=== PATIENT | male | born 1940 | race African-American/Black ===

== ENCOUNTER 2017-01-19 20:25 | Inpatient (IN) | payer OTHER ==
--- NOTE | ~2017-01-19 | PUL ---
[address] [address] NAME: LEIDY NASH : 42 STATUS : ADM IN PAT#: [id number] AGE: 76 ADM/REG DATE : 01/19/17 MR#: [id number] REPORT SERV DATE: 01/25/17 DICTATED BY: VALERIANO VIRK DATE: 01/25/17 REPORT STATUS : Draft TRANSCRIBED BY: MODL DATE: 01/25/17 PULMONARY FUNCTION TEST PROCEDURE: Spirometry. Spirogram ratio 0.7. FEV1 of 1.11 L or 39% and FVC 1.6 L or 42%. IMPRESSION: Borderline large airways obstruction. Possible lung restriction. Get total lung volumes if clinically warranted. CEP/MODL Valeriano Virk DO / [id number] CC: MD REYNA Dunlap AMANDA M
--- NOTE | ~2017-01-19 | TEE ---
Transesophageal Echocardiogram [id number] [place]. [address] NAME: LEIDY NASH : 42 STATUS : ADM IN [facility]#: [id number] AGE: 76 ADM/REG DATE : 01/19/17 MR#: [id number] REPORT SERV DATE: 01/26/17 DICTATED BY: VIC KO DATE: 01/25/17 REPORT STATUS : Draft TRANSCRIBED BY: CHRISTIANO DATE: 01/25/17 TRANSESOPHAGEAL ECHOCARDIOGRAM: REASON FOR ADMISSION: Possible endocarditis. DATE: 01/25/2017 at 3 p.m. LOCATION: Short-stay unit. ANESTHESIA: Provided by anesthesiology associates. Consent from patient. COMPLICATIONS: None. PROFILE GRINDER TECHNICIAN: Amari. SENIOR PROCUREMENT SPECIALIST: Bronwyn. BRIEF HISTORY: A 76-year-old gentleman with multiple comorbidities includes had high fever, staph bacteremia followed by Dr. Nichole. He is hemodynamically stable, has sinus tachycardia. Hemoglobin was 8.3. Liver function tests mildly elevated. He otherwise appears comfortable. His dentition is fairly poor. He was placed on telemetry and had continuous monitoring as well as assessment of blood pressure, heart rate and O2 saturation. A padded bite block was used before the time-out was called and a face-mask was used by [facility]. The patient tolerated the procedure well. The esophagus was easily intubated with the omniplane YEN probe. Very good images were obtained and the patient was given the results and recommendations and I called Dr. Nichole with the result as well. FINDINGS: 1. Valve: The mitral valve is relatively thin and the leaflets coapt well; however, there are visible mobile echodensity located primarily toward the tips of each valve on the ventricular surface which appears suspicious for possible endocarditis lesions. The largest is 0.8/0.3 cm on the anterior mitral leaflet. The valve does exhibit some regurgitation perhaps of mild degree and it appears fairly central. 2. The aortic valve is trileaflet that coapt well. No insufficiency. 3. The tricuspid valve is fairly well seen and is otherwise unremarkable. 4. The pulmonary valve not well seen at all. a. Atria: Appeared grossly normal in size. Left atrial appendage is upper limit of normal. No spontaneous echo-contrast, thrombi, mass, or vegetation seen in either atria. The anterior atrial septum was intact. No septal defect. Color Doppler fails to demonstrate any intraatrial communication. The agitated saline "bubble contrast" opacifies the right atrium, fails to demonstrate any right to left flow. b. Ventricles: The left ventricle demonstrates concentric hypertrophy, normal systolic function, no segmental wall motion abnormalities, and the right ventricle is Transesophageal Echocardiogram [address] [address] NAME: LEIDY NASH : 42 STATUS : ADM IN PAT#: [id number] AGE: 76 ADM/REG DATE : 01/19/17 MR#: [id number] REPORT SERV DATE: 01/26/17 DICTATED BY: VIC KO. DATE: 01/25/17 REPORT STATUS : Draft TRANSCRIBED BY: MODShabbir DATE: 01/25/17 in the upper normal range, otherwise contracts fairly well. c. Pericardial space is normal. d. Visualized segments of the aorta demonstrates mild diffuse plaque only. No spontaneous echocontrast. IMPRESSON: Possible mitral valve endocarditis involving both leaflets as noted above. PLAN: Discussed with Dr. Nichole, antibiotics at his discretion. Note that the patient's transthoracic echo performed yesterday was interpreted by Dr. Hale and was otherwise fairly unremarkable without significant "valvular dysfunction." The left atria appeared mildly dilated, right ventricular systolic function appeared at the lower limits of normal, left ventricular ejection fraction was borderline at 50%, and the patient was tachycardic throughout the study. SAT/LIORL Vic Ko D.O. / [id number] CC: MD REYNA Dunlap AMANDA M Theodore Richards, M.D. Hal Hill, M.D.
--- NOTE | ~2017-01-19 | HP ---
History And Physical [facility] [address] [place]. [address] NAME: LEIDY MARTINEZ : 42 STATUS : ADM Moises PAT#: [id number] AGE: 76 ADM/REG DATE : 01/19/17 MR#: [id number] REPORT SERV DATE: 01/20/17 DICTATED BY: ALEXANDER FOOTE DATE: 01/20/17 REPORT STATUS : Draft TRANSCRIBED BY: MODL DATE: 01/20/17 DATE OF ADMISSION: 01/19/2017 CHIEF COMPLAINT: Right-sided chest pain. HISTORY OF PRESENT ILLNESS: This is a 76-year-old male, who presents to the emergency room at [facility] in [place] with the above-mentioned complaint. History is obtained from the patient and reviewing data available on the [employer]. Data from [facility] was also reviewed. According to Mr. Martinez who had recent GI bleed on the 12/29/2016 or 12/30/2016, he was in his usual state of health after his discharge when he started having this pain described above. Pain is essentially in the right lower chest or upper abdomen. He states he feels like there is a knot there and pain comes and goes, and when it is at that high it is about 8 or 9/10. It is associated with some sweating without any nausea or vomiting. He has had no other problems other than that. Today, it was unbearable and he decided to come to the emergency room to be evaluated. In the emergency room, he had a V/Q scan, which showed low probability for pulmonary embolism. He had leukocytosis and an elevated troponin of 3.60. He also had acute kidney injury and anemia with a hemoglobin of 8.9 and hematocrit of 27.8. Hospitalist Service has asked to admit him for further evaluation and treatment. At the time of my evaluation, he denied any chest pain or palpitations. He had no orthopnea. He had no cough, hemoptysis, night sweats, or weight loss. He has not had any recent falls or loss of consciousness. He has not had any fevers or chills recently. No history of nausea or vomiting. No diarrhea, no dysuria. No history of hematemesis, hematochezia, or hematuria. No other history of recent travel or exposures other than those mentioned above. PAST MEDICAL HISTORY: Significant for history of diabetes mellitus, hypertension, atrial fibrillation for which he was on Eliquis until his GI bleed and it was discontinued. He has coronary artery disease with stent placement and hyperlipidemia as well. SOCIAL HISTORY: He does not smoke, drink, or use recreational drugs. FAMILY HISTORY: Noncontributory. MEDICATIONS: At home were reviewed by me in the chart today and reordered by me. REVIEW OF SYSTEMS: As in history of present illness. All other systems were reviewed in detail and are quite unremarkable. PHYSICAL EXAMINATION: GENERAL: This is a pleasant 76-year-old, not in any acute distress. History And Physical [address] [address] NAME: LEIDY MARTINEZ : 42 STATUS : ADM Moises PAT#: [id number] AGE: 76 ADM/REG DATE : 01/19/17 MR#: [id number] REPORT SERV DATE: 01/20/17 DICTATED BY: ALEXANDER FOOTE DATE: 01/20/17 REPORT STATUS : Draft TRANSCRIBED BY: CHRISTIANO DATE: 01/20/17 HEENT: His head is atraumatic and normocephalic. He is alert, awake, and oriented to time, place, and person. Pupils are equal, reacting to light and accommodating. External ocular muscles are intact. Membranes are moist and pink. Sclerae are nonicteric. NECK: Supple with no jugular venous distention, lymphadenopathy, or thyromegaly. LUNGS: Clear to auscultation with no wheezes, rubs, or crackles. HEART: Heart sounds were regular with no murmurs, rubs, or gallops. ABDOMEN: There is tenderness to palpation in the abdomen primarily in the epigastric and right upper quadrant areas. There is no rebound or guarding. Bowel sounds are present. EXTREMITIES: Showed no cyanosis, clubbing, or edema. NEUROLOGIC: Grossly intact. No focal sensory or motor deficits. Higher functions appeared intact. VITAL SIGNS: His vital signs today showed a temperature of 97.3, pulse 106, respirations 20 a minute, blood pressure was 126/78, oxygen saturations were 93% breathing 2 L of oxygen via nasal cannula. LABORATORY DATA/IMAGING: Reviewed on the [employer] showed a sodium of 138, potassium 4.0, chloride 102, and CO2 of 22. BUN was 31 with a creatinine of 2.39. Blood glucose was 196. His troponin was 3.60 today. CBC showed a white blood cell count of 18,700, hemoglobin was 8.9, hematocrit 27.8, and platelet count was 695,000. His D-dimer was 2.44 today. Urinalysis was not done today. Again, V/Q scan results were reviewed by me and there is low probability for pulmonary embolism. A 12-lead EKG done in the emergency room was reviewed and interpreted by me. There is sinus tachycardia with a rate of 101. IMPRESSION: 1. Right-sided pleuritic chest pain versus right upper quadrant pain. 2. Leukocytosis. 3. Elevated troponin. 4. Acute kidney injury. 5. Anemia. 6. Gastroesophageal reflux disease. 7. Diabetes mellitus type 2 with hyperglycemia. 8. Hypomagnesemia. 9. Hypertension. 10.History of atrial fibrillation. 11.Coronary artery disease with stent. 12.Hyperlipidemia. PLAN: We will admit Mr. Martinez to the Hospitalist Service with Telemetry for a 24-hour observation. We will follow serial troponin measurements to rule out acute coronary syndrome. Heparin is contraindicated due to his recent GI bleed. We will offer intravenous Dilaudid or morphine on an as needed basis to control pain. His V/Q scan was low probability for PE. We will go ahead and order a CT scan of his abdomen and pelvis History And Physical [address] [address] NAME: LEIDY MARTINEZ : 42 STATUS : ADM Moises PAT#: [id number] AGE: 76 ADM/REG DATE : 01/19/17 MR#: [id number] REPORT SERV DATE: 01/20/17 DICTATED BY: ALEXANDER FOOTE DATE: 01/20/17 REPORT STATUS : Draft TRANSCRIBED BY: MODL DATE: 01/20/17 noncontrast to evaluate this pain further. We will replace magnesium at this time, follow chemistry, and redo his electrolytes in the morning and replace as needed. We will start him on IV fluids cautiously for volume replacement. We will follow serial hemoglobin and hematocrit levels, and type cross and transfuse if needed. We will also place him on NovoLog insulin per sliding scale for blood sugar control and go ahead and check his A1c. We will place him on low-dose heparin subcutaneously for DVT prophylaxis while here. I have discussed the above plan with the patient, and his questions were answered and he is agreeable to the above recommendations. Hospitalist Service has asked to admit him for further evaluation and treatment. /CHRISTIANO Alexander Foote M.D. / [id number] CC: Josh Bonilla M.D.
--- NOTE | ~2017-01-19 | PRECARD ---
H&P [facility] [address] [facility] [place]. [address] NAME: MAMADOU MARTINEZ : 42 STATUS : ADM Moises PAT#: [id number] AGE: 76 ADM/REG DATE : 01/19/17 MR#: [id number] REPORT SERV DATE: 01/20/17 DICTATED BY: DULCE PEÑA DATE: 01/20/17 REPORT STATUS : Draft TRANSCRIBED BY: CHRISTIANO DATE: 01/20/17 DATE OF ADMISSION: 01/19/2017 HISTORY: Mr. Mamadou Martinez is a 76-year-old gentleman admitted with a [id number] day history of right flank discomfort. Mr. Martinez has no known cardiovascular disease. He lives alone. He describes history of alcohol abuse, quit in the , he also quit smoking about 1989. He describes dyspnea on exertion when walking on level ground for three to four months. No orthopnea or PND. No palpitations. For the last 3 days, he has had discomfort in his right flank. He describes discomfort in the right side in the axillary line in the lower rib area, upper abdomen. This discomfort is exacerbated by rotating his trunk back and forth. He has no tenderness in that area. He absolutely denied any falls, any trauma to that area. These symptoms have been persistent. He came to the emergency room because of this discomfort in his right side. It is not in the chest, it is in the liver area again from the mid axillary line. Again, it is not tender and he has had no trauma. Upon further questioning, he does admit to dyspnea on exertion now for several months. He has history of alcohol use and tobacco use, though he quit drinking about 1979 and smoking in the . He has no definite family history of premature coronary disease. He came to the emergency room, V/Q scan was low probability for pulmonary embolism. His laboratories included a white count 18,700 and a troponin of 3.6. Laboratories indicated creatinine of 1.1 at [facility] on 12/30/2016. PAST MEDICAL HISTORY: History of alcohol abuse, history of tobacco use. MEDICATIONS: Albuterol, aspirin, hydrochlorothiazide, isosorbide, losartan, Mevacor, Glucophage, metoprolol, Prilosec, potassium, Mysoline, Rythmol, Ultram. REVIEW OF SYSTEMS: Complete review of systems was obtained, pertinent negative and unremarkable except as noted above and below. All systems addressed. PHYSICAL EXAMINATION: VITAL SIGNS: Blood pressure about 135/80, heart rate 80. GENERAL: The patient appears chronically ill, has some mild conversational dyspnea, with tremor in both arms and halting speech. HEENT: No xanthelasma; lips without cyanosis LUNGS: Clear to auscultation, no wheezes, rales or rhonchi; good breath sounds. COR: No JVD or hepatojugular reflux, no rubs or gallops, impulse mid clavicular line without carotid or abdominal bruits; normal S1 and S2. 2/6 murmur at the right upper sternal border. . H&P [address] [address] NAME: MAMADOU MARTINEZ : 42 STATUS : ADM Moises PAT#: [id number] AGE: 76 ADM/REG DATE : 01/19/17 MR#: [id number] REPORT SERV DATE: 01/20/17 DICTATED BY: DULCE PEÑA DATE: 01/20/17 REPORT STATUS : Draft TRANSCRIBED BY: CHRISTIANO DATE: 01/20/17 ABDOMEN: Bowel sounds positive, normal activity, without tenderness, masses or hepatosplenomegaly. EXTREMITIES: No edema, cyanosis. SKIN: Normal turgor. MS: Normal muscle strength, without kyphosis/scoliosis. NEURO/PSYCH: Alert and oriented times 4, no apparent anxiety or depression. LABORATORIES: BUN 31, creatinine 2.39, troponin 3.6, glucose 195. White count 18.7, hematocrit of 27.8, platelet count 2695. V/Q showed no pulmonary embolism. EKG, sinus tachycardia at 101 with PACs without ischemia. ASSESSMENT: Mr. Martinez is a 76-year-old gentleman who describes dyspnea on exertion for several months and right flank discomfort. He has no tenderness. No trauma. His creatinine apparently was normal early this month at [place] and now is 2.39. He is on Rythmol, he is in sinus rhythm. I will stop the Rythmol given the possibility of coronary artery disease. He also has diabetes by records, though he denies having diabetes. I presume he was in atrial fibrillation at [facility] and that is why the propafenone was started. I do not have those records. Regardless I will stop propafenone given disease and the risk of proarrhythmia. PLAN: 1. Obtain records from [facility], indications propafenone, presumably atrial fibrillation; also need to investigate the possibility of coronary artery disease. 2. Consider cardiac catheterization with possible angioplasty depending upon his renal function. Given his complete absence of chest discomfort or significant arrhythmia, I think it is safest to delay catheterization if at all. LIBIA/CHRISTIANO Dulce Peña M.D. / [id number] CC: Josh Bonilla M.D.
--- NOTE | ~2017-01-19 | CN ---
Consultation Report [facility] [address] [facility] [place]. [address] NAME: LEIDY MARTINEZ : 44 STATUS : ADM Moises PAT#: [id number] AGE: 76 ADM/REG DATE : 01/19/17 MR#: [id number] REPORT SERV DATE: 01/20/17 DICTATED BY: NAMAN ALVA DATE: 01/20/17 REPORT STATUS : Draft TRANSCRIBED BY: MODL DATE: 01/20/17 NEPHROLOGY CONSULT DATE OF CONSULTATION: HISTORY OF PRESENT ILLNESS: Mr. Martinez is a patient of Dr. Lincoln, follows in our office for chronic kidney disease, admitted at baseline creatinine 1.2 in the July last year, recently at [facility] for lower GI bleed and no significant findings identified at that point, but was taken off his Eliquis. He presents here with chest pain yesterday, found to have elevated troponin, which has peaked at 14.2. Dr. Elmo Swann, who follows him at [facility] had to come to the heart catheterization this afternoon for acute TX. Besides his recent GI bleed, his past medical history is significant for 40 years of diabetes, 40 years of hypertension, history of atrial fib, ablated in the past and placed on Eliquis, which was stopped because of his GI bleed. He has known coronary artery disease, stented by Dr. Swann in the past, hyperlipidemia, and lobectomy of his right lung, which was not for cancer, but because of some fluid accumulation, that is all I could get from him. SOCIAL HISTORY: No tobacco. No alcohol. No drugs. . Daughter cares for him, her name is Bonnie Martinez, cell phone #[phone]. I have talked to her about the situation, she was not aware he was in the hospital. FAMILY HISTORY: Noncontributory. ALLERGIES: HE IS ALLERGIC TO BENADRYL, IT CAUSES ITCHING. REVIEW OF SYSTEMS: Chest pain, right-sided on admission, it is resolved now. Positive troponins. Hemoglobin was low at 8.9, followed in my office by Dr. Lincoln, baseline creatinine 1.2. With fluids during his [facility] admission, creatinine came down to 1.1 on 12/30/2016. He is chilling in the room, but says he is cold. He has had no fever, chilling prior to hospitalization. No hemoptysis. No further GI bleeding and has been asymptomatic until the chest pain started. HOME MEDICATIONS: Listed as albuterol, aspirin, hydrochlorothiazide, isosorbide, losartan, lovastatin, metformin, metoprolol, omeprazole, potassium, primidone, Rythmol, and Ultram. PHYSICAL EXAMINATION: VITAL SIGNS: Blood pressure 140/77, heart rate 95, respirations 16, temp 97.4. GENERAL: Alert, cooperative, in no acute distress. LUNGS: Clear. CARDIOVASCULAR: Without murmur, gallops, or rubs. No jugular venous distention. ABDOMEN: Soft, benign. Bowel sounds are present. No peripheral edema. Good pulses. NEUROLOGICAL: Normal exam basically with patient oriented x3, cooperative, nonfocal neurological exam. Consultation Report [address] [place]. [address] NAME: LEIDY MARTINEZ : 42 STATUS : ADM Moises PAT#: [id number] AGE: 76 ADM/REG DATE : 01/19/17 MR#: [id number] REPORT SERV DATE: 01/20/17 DICTATED BY: NAMAN ALVA DATE: 01/20/17 REPORT STATUS : Draft TRANSCRIBED BY: MODShabbir DATE: 01/20/17 SKIN: No skin rash. LYMPH: No lymphadenopathy. LABORATORY DATA: Shows sodium 140, potassium 4.2, chloride 107, CO2 21 with a BUN of 36, creatinine 2.5, blood sugar 178. Troponin is 14.22, TSH 0.34. INR 1.5. EKG shows PACs, otherwise unremarkable except [place] [address], hemoglobin 8.6, hematocrit 27, platelet count 636,000. Chest x-ray is clear. ASSESSMENT: 1. Acute myocardial infarction, for cardiac cath three o'clock today by Dr. Tio Swann. 2. Acute kidney injury on chronic kidney disease stage III, baseline creatinine 1.2 in July last year, and again in 12/30/2016 this year at [facility] with fluids. Creatinine was down to 1.1. 3. See past medical history for diabetes, hypertension, and cardiac issues. PLAN: IV fluids. I have discussed with Dr. Kahn. He has given him some bicarb. We will attempt to avoid dialysis if at all possible. The patient is aware of need for dialysis, where his kidney function to be affected by the dye. Daughter also is aware of this and we will follow creatinine again this evening and tomorrow morning and decide then if dialysis is indicated. He is very familiar with dialysis due to the dialysis of his sister. MARY KATE/CHRISTIANO Naman Alva M.D. / [id number] CC: DO Sheila Orta M.D. Frank B. Calhoun, M.D.
--- NOTE | ~2017-01-19 | CN ---
Consultation Report [facility] [address] [place]. [address] NAME: LEIDY NASH : 42 STATUS : ADM IN [facility]#: [id number] AGE: 76 ADM/REG DATE : 01/19/17 MR#: [id number] REPORT SERV DATE: 01/21/17 DICTATED BY: CATHERINE NICHOLE DATE: 01/21/17 REPORT STATUS : Draft TRANSCRIBED BY: MODL DATE: 01/21/17 INFECTIOUS DISEASE CONSULTATION DATE OF CONSULTATION: 01/21/2017 REASON FOR CONSULTATION: MRSA septicemia. HISTORY OF PRESENT ILLNESS: This is a 76-year-old man with past medical history notable for chronic kidney disease, hypertension, diabetes, hyperlipidemia, gastroesophageal reflux, and atrial fibrillation. He presented to the emergency department at [facility] on the evening of 01/19/2017 with the onset that day of pain. The patient tells me this pain was more in the right base of his neck and was associated with shortness of breath. The admission notes states that he said the pain was more in his right lower rib cage area and upper quadrant. He has a little bit vague about when all this began. Initial notes suggested it just developed over the previous day or two, but then, he tells me that his problems started some days before. Actually, he says that he just felt rather poorly after beginning about three days after his discharge from [facility] on 01/04/2017. He had been admitted there from 12/28/2016 through 01/04/2017 for evidence of GI bleed, for which he underwent EGD, colonoscopy, and a capsule endoscopy without a source of bleeding found, although he did have some superficial ulcerations in the proximal duodenum. The patient states about three days after discharge, he started just feeling poorly in general and may be he was having some subjective fevers, although again he is rather vague about it at all. No severe shaking chills, and a couple of days before coming to the ER, he started getting this pain, which was quite severe. On initial evaluation, he had a white blood cell count of 18,700 and a troponin of 3.6 and creatinine 2.39. Blood cultures were obtained, and he was started on empiric antibiotics with vancomycin and Levaquin. He had a low probability V/Q scan and then underwent a CT scan of the abdomen and pelvis and chest without IV contrast. These studies are reviewed and revealed a rounded incompletely circumscribed nodular infiltrate of the right lower lobe measuring 2 x 1.8 cm of indeterminate etiology, possible round pneumonia versus neoplastic lesion. The patient also has moderately severe centrilobular emphysema. The abdomen and pelvis otherwise just showed several hyperdense cystic structures in the right kidney, some of which were felt to possibly be hemorrhagic but further investigation was felt to be warranted at some point. There is marked enlargement of the prostate. Both sets of admission blood cultures have returned positive for MRSA. The patient underwent cardiac cath as his troponin peaked at 14.20 and this demonstrated normal coronary artery arteries with a widely patent stent except for some mild distal small vessel disease in the right coronary artery. The patient has been afebrile. His white blood cell count has improved down to 14.3 today and his pain has resolved. He does state that he has episodic cough, which is not very productive, and he denies any hemoptysis. In reviewing the [facility] discharge summary from his admission earlier this month, I do not see any indication of any infectious complications there and his white blood cell count was normal, and he denies any problems with IV sites. He denies any skin or soft tissue infection such as boils or abscesses. Consultation Report [address] [place]. [address] NAME: LEIDY NASH : 44 STATUS : ADM IN [facility]#: [id number] AGE: 76 ADM/REG DATE : 01/19/17 MR#: [id number] REPORT SERV DATE: 01/21/17 DICTATED BY: CATHERINE NICHOLE DATE: 01/21/17 REPORT STATUS : Draft TRANSCRIBED BY: CHRISTIANO DATE: 01/21/17 PAST MEDICAL HISTORY: Other than the above is unremarkable. ALLERGIES: HE IS INTOLERANT OF BENADRYL. PRESENT MEDICATIONS: In addition to vancomycin include Levaquin, Isordil, Mevacor, Toprol, Protonix, primidone, and Spiriva. SOCIAL HISTORY: The patient has a past history of tobacco use but quit in the , also quit drinking at that time. He lives alone. FAMILY HISTORY: Unremarkable. REVIEW OF SYSTEMS: No nausea, vomiting, diarrhea, genitourinary symptoms, back pain, or headache. PHYSICAL EXAMINATION: VITAL SIGNS: The patient weighs 89 kg. He is afebrile. Blood pressure 110/68, pulse 88, it was as high as 112, respiratory rate 14, it was as high as 22. GENERAL: He is alert, in no acute distress. HEAD AND NECK: Conjunctivae show no petechiae. The oral cavity is clear. NECK: Supple. No adenopathy. LUNGS: He has inspiratory crackles, mild, in both bases, otherwise clear. CARDIAC: Regular rate and rhythm at present. Normal S1, S2 with a very soft 1/6 to 2/6 systolic ejection murmur at the aortic area. ABDOMEN: Soft, nontender. No masses. EXTREMITIES: No stigmata of endocarditis. Trace edema. Peripheral IV without phlebitis. LABORATORY STUDIES: White blood cell count as mentioned, hemoglobin 7.2, platelets 574. Creatinine is back down to about his baseline at 1.54 and albumin 1.9. Urinalysis on admission negative. Blood cultures as mentioned. IMAGING STUDIES: As noted above. IMPRESSION: Methicillin-resistant Staphylococcus aureus septicemia without a definite source in the patient who also presented with myocardial infarction and negative cardiac cath. Given this we must at least consider the possibility of endocarditis with coronary artery embolic event leading to myocardial infarction. The CT scan of the chest does show an abnormality, which could be a round pneumonia versus a mass of some sort. I do not think though this is all methicillin-resistant Staphylococcus aureus pneumonia. The skeletal structures including the spine on the CT scan of the chest, abdomen, and pelvis also showed no signs of infection. PLAN: 1. We will continue vancomycin and discontinue the Levaquin. 2. Repeat blood cultures in the morning. Consultation Report [address] [address] NAME: LEIDY NASH : 42 STATUS : ADM IN [facility]#: [id number] AGE: 76 ADM/REG DATE : 01/19/17 MR#: [id number] REPORT SERV DATE: 01/21/17 DICTATED BY: CATHERINE NICHOLE DATE: 01/21/17 REPORT STATUS : Draft TRANSCRIBED BY: CHRISTIANO DATE: 01/21/17 3. Echocardiogram, he may need a YEN. DOROTHY/CHRISTIANO Catherine Nichole M.D. / [id number] CC: DO REYNA Orta AMANDA M Theodore Richards, M.D.
--- NOTE | ~2017-01-19 | CN ---
Consultation Report [facility] [address] [place]. [address] NAME: LEIDY MARTINEZ : 44 STATUS : ADM IN PAT#: [id number] AGE: 76 ADM/REG DATE : 01/19/17 MR#: [id number] REPORT SERV DATE: 01/22/17 DICTATED BY: RADHA ARCHER DATE: 01/22/17 REPORT STATUS : Draft TRANSCRIBED BY: MODL DATE: 01/22/17 PULMONARY CONSULTATION DATE OF CONSULTATION: 01/22/2017 REASON FOR CONSULTATION: Abnormal CT scan of the chest. HISTORY OF PRESENT ILLNESS: Mr. Martinez is a 76-year-old black male, former smoker, with a history of previous right upper lobectomy who was admitted complaining of abdominal pain. As part of his workup, he had a CT scan of the abdomen and pelvis and lung cuts on his abdominal CT, and the subsequent CT scan of the chest revealed a possible lung mass, so Pulmonary was consulted for assistance. The patient denies pulmonary complaints now and prior to admission. He denies shortness of breath, cough, wheezing, sputum production, fever, chills, night sweats, or hemoptysis. He does have the abdominal pain as described. He states he sees an [place] phone specialist and has seen him "one time only, just now," but he is unsure why he is seeing that physician. He also states he has had a prior CT scan of the chest. He is unable to give the dates, but states he has had one recently. With regard to his previous right upper lobectomy, he states it was done years ago secondary to "fluid on the lung." He is unable to give further details. Here in the hospital, he was found to have MRSA septicemia and has been treated with vancomycin per Infectious Diseases. Additionally, he received Levaquin, but that medication has been discontinued. He has been on Spiriva here as an inpatient and it is documented as an outpatient medication, though he denies this. Currently, he feels his abdominal pain is better. He continues to deny pulmonary symptoms. PAST MEDICAL HISTORY: 1. The patient denies a past medical history of pulmonary diseases other than right upper lobectomy. He denies COPD. 2. Right upper lobectomy as noted above - reason unclear. 3. Former smoker. 4. Diabetes mellitus. 5. Hypertension. 6. Atrial fibrillation with a history of chronic anticoagulation. 7. Previous GI bleed. 8. Coronary artery disease with cardiac stent. 9. Hyperlipidemia. 10.Chronic kidney disease. 11.GERD. FAMILY HISTORY: He denies family history of pulmonary diseases. Consultation Report [facility] [id number] [place]. [address] NAME: LEIDY MARTINEZ : 44 STATUS : ADM IN PAT#: [id number] AGE: 76 ADM/REG DATE : 01/19/17 MR#: [id number] REPORT SERV DATE: 01/22/17 DICTATED BY: RADHA ARCHER DATE: 01/22/17 REPORT STATUS : Draft TRANSCRIBED BY: CHRISTIANO DATE: 01/22/17 SOCIAL HISTORY: Mr. Martinez smoked approximately one pack of cigarettes per day for more than 60 years and quit a year and half ago. He denies current ethanol intake, but states he has a long history of significant ethanol intake in the past. He denies past/present drug use or chewing tobacco. He denies occupational exposures, including asbestos. He is a and has three children. MEDICATIONS: Outpatient and inpatient medications were reviewed and are as documented in the record. The medical record indicates that the patient was on Spiriva 18 mcg once daily and rescue albuterol as an outpatient, though the patient denies this. He is on these medications here as an inpatient. ALLERGIES: DIPHENHYDRAMINE. REVIEW OF SYSTEMS: A 10-point system review was conducted and is remarkable for the symptoms as described in the history of present illness. He denies symptoms suggestive of obstructive sleep apnea. PHYSICAL EXAMINATION: VITAL SIGNS: Temperature 97.6 degrees, heart rate 100, blood pressure 100/61, respiratory rate 14, and oxygen saturation 97% on room air. GENERAL: A well-nourished, well-developed, black male. Alert, oriented, in no apparent distress. Sitting up in chair. HEENT: Normocephalic. Atraumatic. There is no scleral icterus, but the sclerae are muddy. The conjunctivae are clear. The oropharynx is clear. He has very poor dentition. NECK: Supple. No lymphadenopathy was noted. LUNGS: Good effort. There are diminished breath sounds throughout. The lungs are clear to auscultation bilaterally. HEART: Regular tachycardia. ABDOMEN: Soft. Nontender. There is minimal distention. The bowel sounds are normal in all four quadrants. BILATERAL EXTREMITIES: There is trace pretibial edema. There is no cyanosis or clubbing. NEUROLOGICAL: A very limited exam was conducted and was found to be nonfocal. SKIN: No rashes were noted. LABORATORY RESULTS: Labs were reviewed and are as documented in the record. Notable labs include a white blood cell count of 12.0. The procalcitonin is 1.00 down from 2.52. Two blood cultures done on 01/21/2017 are positive for MRSA. IMAGING: The V/Q scan done this admission was low probability for pulmonary embolism. The chest x-ray done this admission did not reveal any infiltrates, effusions, or nodules. The CT scan of the chest as well as the lung cuts of the abdominal CT revealed diffuse emphysema, minimal bronchiectasis, rare scattered ground-glass infiltrates, bibasilar Consultation Report [address] [address] NAME: LEIDY MARTINEZ : 44 STATUS : ADM IN [facility]#: [id number] AGE: 76 ADM/REG DATE : 01/19/17 MR#: [id number] REPORT SERV DATE: 01/22/17 DICTATED BY: RADHA ARCHER DATE: 01/22/17 REPORT STATUS : Draft TRANSCRIBED BY: CHRISTIANO DATE: 01/22/17 atelectasis, and a right lower lobe mass-like consolidation. ASSESSMENT AND PLAN: Mr. Martinez is a 76-year-old black male, former smoker, with an abnormal CT scan of the chest as described above. The right lower lobe abnormality is a mass versus possible pneumonia versus rounded atelectasis. He did have a procalcitonin that was elevated, but is coming down with antibiotic therapy as per Infectious Disease. He is asymptomatic from a pulmonary perspective as noted above. As noted, he does have a phone specialist at [place] and states he has previous CT scans of the chest including a recent scan. He also has a history of right upper lobectomy as described. The findings on CT may be related to his previous right upper lobectomy. There is also some question of COPD. RECOMMENDATIONS: 1. Continue antibiotics as per Infectious Disease. 2. Recheck procalcitonin. 3. Attempt to obtain any prior CT scans of the chest from [place]. 4. Continue bronchodilators. 5. Improve pulmonary toilet as the patient does have significant atelectasis. We will add EzPAP and incentive spirometry. 6. He will need at minimum a followup CT scan of the chest in three months, but this recommendation may change depending on his response to therapy and comparison to prior films if they are available. 7. With regard to possible COPD, I recommend continuing him on Spiriva and albuterol. A bedside spirogram has been ordered for him. Thank you very much for this consultation. Further recommendations to follow. PS/MODL Radha Archer M.D. / [id number] CC: DO REYNA Orta AMANDA M
--- NOTE | ~2017-01-19 | DS ---
Discharge Summary [facility] [address] [place]. [address] NAME: LEIDY NASH : 44 STATUS : DIS IN PAT#: [id number] AGE: 76 ADM/REG DATE : 01/19/17 MR#: [id number] REPORT SERV DATE: 02/09/17 DICTATED BY: TELLO SANABRIA DATE: 02/08/17 REPORT STATUS : Draft TRANSCRIBED BY: MODL DATE: 02/08/17 ADMISSION DATE: 01/19/2017 DISCHARGE DATE: 02/08/2017 CONSULTING PHYSICIANS: Dr. Ko for Cardiology, Dr. Virk for Pulmonary, Dr. Nichole for ID, Dr. Paul for Nephro. FINAL DIAGNOSES: 1. 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 2. Pericarditis. 3. Atrial fibrillation. 4. Recent fss-BB-llmlbny elevation myocardial infarction. 5. Hypertension. 6. Pulmonary edema. 7. Chronic kidney disease, 3-4. 8. Chronic obstructive pulmonary disease. 9. Diabetes. 10.Anemia of chronic disease. 11.Depression. 12.Severe malnutrition. HOSPITAL COURSE: Please refer to the H and P done by Dr. Mercedes on 01/20/2017, the interim discharge summary done by Dr. Narayan on 01/31/2017, the interim discharge summary done by Dr. Silva and Narcisa Ngo on 02/05/2017 and 02/06/2017. Since I took care of this patient, the patient has been approved to go to [facility] [place]; however, his heart rate was still elevated. We increased his metoprolol, observed him overnight and we see that it is now less than 100. The patient's blood pressure remained stable and the other subspecialties have recommended either palliative care or hospice. The patient has not decided on hospice yet. We got palliative care involved and they cleared the patient to go to [facility]. The patient will now be discharged with the above diagnosis. He will be on the following medications: Lipitor 40 mg at bedtime, Marinol 2.5 mg with breakfast and supper, subcutaneously insulin protocol level 2, melatonin 6 mg at bedtime, metoprolol 25 mg twice a day, Protonix 40 mg a day, Mysoline 200 mg at bedtime, sertraline 25 mg a day, Spiriva 18 mcg powder inhaled once a day, Demadex 20 mg a day, daptomycin 500 mg q.2 days until 03/03/2017, albuterol two puffs p.r.n. The patient will follow up with [facility] doctor, then follow up with his PCP after [facility] discharge. This has been explained to the patient. He agreed and understood the plan. YUDI/CHRISTIANO Tello Sanabria M.D. Discharge Summary [address] [address] NAME: LEIDY NASH : 42 STATUS : DIS IN PAT#: [id number] AGE: 76 ADM/REG DATE : 01/19/17 MR#: [id number] REPORT SERV DATE: 02/09/17 DICTATED BY: TELLO SANABRIA DATE: 02/08/17 REPORT STATUS : Draft TRANSCRIBED BY: CHRISTIANO DATE: 02/08/17 / [id number] CC: Tashi Martel AMANDA M
--- NOTE | ~2017-01-19 | IDS ---
Interim Discharge Summary [facility] [address] [place]. [address] NAME: LEIDY MARTINEZ : 44 STATUS : ADM IN [facility]#: [id number] AGE: 76 ADM/REG DATE : 01/19/17 MR#: [id number] REPORT SERV DATE: 01/31/17 DICTATED BY: SILVINA LAURA DATE: 01/30/17 REPORT STATUS : Draft TRANSCRIBED BY: MODL DATE: 01/30/17 ADMISSION DATE: 01/19/2017 DISCHARGE DATE: Mr. Martinez is a 76-year-old male with a history of diabetes type 2, hypertension, atrial fibrillation, on Eliquis, who presented to the hospital and was admitted to the Hospitalist Service with a complaint of chest pain. For further details, please refer to H and P dictated by Dr. Alexander Mercedes on 01/20/2017. HOSPITAL COURSE: I assumed care of the patient on 01/24/2017. At the time of my assumption of care, Nephrology was already consulted. Please refer to consultation note by Nephrology dictated on 01/20/2017. Infectious Disease was also consulted. Please refer to their consultation on 01/21/2017. Briefly, the patient was admitted under Hospitalist Service with a complaint of right-sided chest pain. At the time of presentation, his white count was severely elevated. Troponins were also elevated prompting a cardiology consult. Given his elevated white count, workup was performed which includes a blood cultures. Blood cultures came back positive for MRSA prompting a TTE and TTE came negative; however, Cardiology recommended YEN. YEN noted pauses of vegetations and the patient was started on vancomycin at the time of my assumption of care, the patient was already on vancomycin and since Infectious Diseases were following, the recommendations were for patient to be placed on a six-week course of IV antibiotics. The patient initially tolerated therapy with pharmacy monitoring trough level. Given that the patient required a six-week therapy of the IV antibiotics, case management was consulted for subacute rehab placement. Placement was found for the patient and the patient was supposed to be discharged today on 01/30/2017; however, over the weekend, starting about 01/27/2017, the patient's creatinine started trending up. Initially, thought was that his TEE was due to hypotension given that the patient had several episodes of hypotension during this admission; however, with the correction of his blood pressure, his creatinine continued to trend up. Given that the patient was on vancomycin and his trough level was greater than 20, most likely that the etiology of worsening kidney function is secondary to vancomycin. Given that plan is for the patient to be on medication for extended period of time and given that it appears that the patient's kidneys are worsening in the setting of vancomycin. The patient was not discharged, Nephrology was consulted to assist in management. PROBLEM LIST: 1. MRSA bacteremia. 2. Infective endocarditis. 3. TEE. 4. NSTEMI. 5. CKD stage III. 6. Constipation. 7. Hyperkalemia. DISPOSITION: The patient will likely be discharged to subacute rehab. Pending medical clearance. Interim Discharge Summary [address] [address] NAME: LEIDY MARTINEZ : 44 STATUS : ADM IN PAT#: [id number] AGE: 76 ADM/REG DATE : 01/19/17 MR#: [id number] REPORT SERV DATE: 01/31/17 DICTATED BY: SILVINA LAURA DATE: 01/30/17 REPORT STATUS : Draft TRANSCRIBED BY: CHRISTIANO DATE: 01/30/17 THELMA/CHRISTIANO Silvina Laura MD / [id number] CC: MD Sheila Dunlap
--- NOTE | ~2017-01-19 | IDS ---
Interim Discharge Summary [facility] [address] [place]. [address] NAME: LEIDY NASH : 44 STATUS : ADM IN [facility]#: [id number] AGE: 76 ADM/REG DATE : 01/19/17 MR#: [id number] REPORT SERV DATE: 02/06/17 DICTATED BY: DATE: REPORT STATUS : Draft TRANSCRIBED BY: MODL DATE: 02/06/17 ADMISSION DATE: 01/19/2017 DISCHARGE DATE: DIAGNOSES: Current interim discharge diagnoses list includes: 1. Methicillin-resistant Staphylococcus aureus endocarditis. 2. Pericarditis. 3. Pulmonary edema. 4. Hypertension. 5. Anemia. 6. Depression. 7. Cachexia. 8. Severe malnutrition. 9. Hypotension. 10.Decreased urinary output. 11.Status post okt-PT-qwujekv elevation myocardial infarction. 12.Generalized weakness. 13.Chronic kidney disease stage 3 to 4. 14.Tachycardia. 15.Chronic obstructive pulmonary disease. 16.History of recent gastrointestinal bleed. 17.Diabetes mellitus type 2. CONSULTING PHYSICIANS: Nephrology with Dr. Unger. Infectious Diseases with Dr. Nichole. Pulmonology with Dr. Vera. Cardiology with Dr. Ko. HISTORY OF PRESENT ILLNESS: This 76-year-old black male who presented to the ER of [facility] with right-sided chest pain. Please see initial H and P by Dr. Alexander Mercedes. The patient also has a history of recent GI bleed and was hospitalized at [place] for the first week of December. The patient was seen by Dr. Paul on 01/20/2017 in consultation due to acute kidney injury on chronic kidney disease stage III in the setting of acute myocardial infarction. The patient had a heart catheterization on 01/20/2017 and a YEN by Dr. Ko on 01/25/2017. Please see interim discharge summary by Dr. Torres Narayan from 01/24/2017 through 01/30/2017. I assume care on 02/01/2017. At that time, it had been discovered that the patient had MRSA bacteremia with positive blood cultures and Dr. Nichole had changed his IV vancomycin to daptomycin. The patient was having episodes of hyperkalemia for which he was receiving Kayexalate. His diabetes mellitus had stayed stable during his stay with only occasional use of sliding scale insulin. The patient has been unable to get specific treatment for his pericarditis with cultures seen due to his renal status and steroids due to his upper GI bleed status post stay at [place] from 12/28/2016 to 01/04/2017, status post EGD, colonoscopy, and capsule. The patient has been in acute-on- chronic pulmonary edema during this time and has been extensively diuresed by Renal with no change in his kidney status. The patient's blood pressure has been between 110-120/50s-60s. On 02/05/2017, the patient's blood pressure was starting to be down closer to 100/63, and his metoprolol succinate 50 mg was changed to metoprolol 12.5 b.i.d. with parameters for Interim Discharge Summary [address] [address] NAME: LEIDY NASH : 42 STATUS : ADM IN PAT#: [id number] AGE: 76 ADM/REG DATE : 01/19/17 MR#: [id number] REPORT SERV DATE: 02/06/17 DICTATED BY: DATE: REPORT STATUS : Draft TRANSCRIBED BY: MODL DATE: 02/06/17 better renal perfusion and nitroglycerin paste was discontinued for the same reason. Zoloft was initiated for depression on 02/03/2017. The patient's emotional status has greatly fluctuated during his stay, but mostly has been depressed. We have attempted to take the patient outside in a wheelchair and get him up more frequently to the bedside chair. One day, the patient was not able to have the strength to get out of the bed. The patient has been refusing even his Nepro shakes. Renal came in today and ordered him a regular diet. The patient does exhibit temporal wasting. The patient has been also started on Marinol and a nutrition consult has been in to try to find foods that would be appealing to the patient. The patient has very few visitors during his stay, which is felt to contribute to his depression. End of life discussion was held with the patient and the patient agreed that a DNR/DNI would probably in his best interest and he is not interested in tube feeding. The patient does have anemia, which was thought to be due to his cardiac and renal status. The patient is to be on IV daptomycin until 03/03/2017. Discharge plan has been discussed with Dr. Nichole and Case Management. We are requesting a palliative care consult to be on 02/07/2017 to assist with the patient's clarification of ideas of his health care status. At that time, it will be decided whether the patient will be discharged to SNF with Palliative Care in attendance. It is agreed between Dr. Nichole and myself that the patient should continue his IV antibiotic therapy regardless of placement. The patient's current labs; sodium is 141, potassium is 3.7, chloride is 97, bicarbonate is 31, BUN is 49, creatinine is 2.85, GFR is 24, glucose is 129, calcium is 9.1, magnesium 2.3, phosphorus is 5.7. WBC is 9.2, hemoglobin 7.8, hematocrit 26.2, platelets 483. Albumin is 2.4. As of this point, the patient has no areas of breakdown. SLC/MODL Narcisa Ngo NP / [id number] CC: MD REYNA Wolf AMANDA M
--- NOTE | ~2017-01-19 | IDS ---
Interim Discharge Summary [facility] [address] [place]. [address] NAME: LEIDY NASH : 44 STATUS : ADM IN [facility]#: [id number] AGE: 76 ADM/REG DATE : 01/19/17 MR#: [id number] REPORT SERV DATE: 02/05/17 DICTATED BY: DATE: REPORT STATUS : Draft TRANSCRIBED BY: MODL DATE: 02/05/17 ADMISSION DATE: 01/19/2017 DISCHARGE DATE: DIAGNOSES: Current interim discharge diagnoses list includes: 1. Methicillin-resistant Staphylococcus aureus endocarditis. 2. Pericarditis. 3. Pulmonary edema. 4. Hypertension. 5. Anemia. 6. Depression. 7. Cachexia. 8. Malnutrition. 9. Decreased urinary output. 10.Status post non-ST elevation myocardial infarction. 11.Generalized weakness. 12.Chronic obstructive pulmonary disease. 13.History of recent gastrointestinal bleed. 14.Chronic kidney disease 3 to 4. 15.Tachycardia. 16.Diabetes mellitus type 2. HISTORY OF PRESENT ILLNESS: This is a pleasant 76-year-old male, who presented to the ER with complaint of right-sided chest pain. Please see admission H and P by Dr. Alexander Mercedes. The patient was admitted to the hospitalist service for further treatment and evaluation. CONSULTS: During this time have been Infectious Disease, Dr. Nichole; Cardiology, Dr. Ko; Renal, Dr. Paul; and Pulmonary, Dr. Vera. Please see interim discharge summary by Dr. Torres Narayan on 01/31/2017. I assumed care of this patient on 01/31/2017. The patient's IV vancomycin had been changed to daptomycin and the patient had had two repeat blood cultures that were negative. Infectious Diseases is also taking care of his infective endocarditis, possibly due to his poor dentition. The patient has been up with PT and out of bed with meals. The patient has had episodes of hyperkalemia for which he has received Kayexalate episodically. The patient is being closely managed by Renal for his pulmonary edema. The patient appears to have acute kidney injury on CKD stage 3, and despite frequent diuresing, albumin and Demadex, the patient continues to have creatinine 2.86, GFR 24, BUN 45. The patient does have decreased lung sounds in the bases. The patient's last chest x-ray was on 02/05/2017 which showed: 1. Similar asymmetric pulmonary infiltrates, left worse than right with small bilateral pleural effusions. 2. Stable enlargement of the cardiac silhouette and stable right super hilar surgical changes. Interim Discharge Summary [facility] [id number] [place]. [address] NAME: LEIDY NASH : 44 STATUS : ADM IN PAT#: [id number] AGE: 76 ADM/REG DATE : 01/19/17 MR#: [id number] REPORT SERV DATE: 02/05/17 DICTATED BY: DATE: REPORT STATUS : Draft TRANSCRIBED BY: MODL DATE: 02/05/17 3. The patient's diabetes mellitus has been well controlled with his fingerstick blood sugars requiring minimal sliding scale insulin. This is probably due to the fact that the patient is eating nothing and only rarely taking his nephro shakes despite staff offering to put in peanut butter ice cream in his shakes. We have consulted Nutrition and started the patient on Marinol. The patient is exhibiting temporal wasting. Daily weights are inconsistent due to his poor renal status and has decreased urine output. The patient does have minimal postvoid residuals and does diurese well, but when is not on aggressive diuresis, his urinary output tapers down to 300 to 400 a day. The patient also was not taking in any fluids p.o. The patient also has had episodes of generalized weakness where he has not even been able to get out of bed with physical therapy. We have continued to encourage staff to get the patient up in the chair twice daily and the patient has also been taken outside in the wheelchair. The patient's COPD seems to be well controlled. The patient is having increasing hypoxia and is currently on 10 L of high-flow nasal cannula where his O2 saturation has been between 94% to 98%. The patient has been exhibiting signs of depression due to his poor medical health and the patient was started on Zoloft on 02/03/2017. Also, had an extensive discussion with the patient and the patient requests to be a DNR/DNI. He has been exhibiting moderate hypotension, blood pressure 100/63, up to 121/67. I am discontinuing his nitro paste to allow for better renal perfusion. Infectious Disease continues to follow closely and we are getting daily CBCs. His current labs are sodium 141, potassium 4.0, chloride 99, bicarb 21.1. BUN 45, creatinine 2.86, GFR 24, glucose 133, calcium 9.5, magnesium 2.5, phosphorus 5.6. WBC is 11.2, hemoglobin 8.0, hematocrit 26.2, platelets 519. 4. The patient's status has continued to decline during the time that I have been taking care of him and has been discussed between services that it is questionable whether the patient will be eligible to go to rehab and inability to give the patient colchicine or steroids to treat his endocarditis due to his recent history of gastrointestinal bleed and his kidney function. SLC/MODL Narcisa Ngo NP / [id number] CC: MD REYNA Wolf AMANDA M
--- NOTE | ~2017-01-19 | OP ---
Record Of Operation [facility] [address] [place]. [address] NAME: LEIDY NASH : 44 STATUS : ADM IN PAT#: [id number] AGE: 76 ADM/REG DATE : 01/19/17 MR#: [id number] REPORT SERV DATE: 01/23/17 DICTATED BY: MYKEL SWANN DATE: 01/20/17 REPORT STATUS : Draft TRANSCRIBED BY: MODL DATE: 01/20/17 DATE OF PROCEDURE: 01/20/2017 CARDIAC CATHETERIZATION REPORT APPARATUS OPERATOR: Mykel Swann M.D. PROCEDURE: Coronary angiogram. PREOPERATIVE DIAGNOSIS: Pkt-QY-vjzplml elevation myocardial infarction. POSTOPERATIVE DIAGNOSIS: Eqb-BQ-qnybnkr elevation myocardial infarction. DESCRIPTION OF PROCEDURE: After informed consent, the patient was brought to the distillery laborer for coronary angiography. He was in a postabsorptive state. Moderate sedation was administered. The right inguinal area was clearly draped and prepped, and local anesthesia was accomplished with Xylocaine. Utilizing an anterior approach of the thinned wall needle, utilizing a guidewire, a 6-Surinamese sheath was placed in the right femoral artery without difficulty. Coronary angiogram was performed with a 4 left Sandy catheter, and subsequently 4 right Sandy catheter. Images were obtained with good technical quality. Left ventriculogram was performed. No left ventricular pressures or hemodynamic measurements were made. IMPRESSION: 1. Left main coronary artery was normal. 2. Left artery descending artery showed no significant stenosis. There was a stent noted in the second diagonal branch, which was widely patent, with MICHAEL-3 flow. 3. The left circumflex artery was normal. 4. The right coronary artery, has stent in its proximal portion, which was widely patent with MICHAEL-3 flow. There are some few distal irregularities noted in small vessels, but no obvious stenosis, or occluded vessels. IMPRESSION: Etiology of the patient's elevated troponins associated with chest pain is unclear. My suspect is small vessel disease as all large vessels appear to be patent, and previous stents were widely patent with MICHAEL-3 flow. No apparent source of troponin elevation was indicated. PLAN: We will continue the patient's present medical regimen including beta-blockers, and return to recovery unit. Sheaths will be removed, hemostasis affected. The fluid management will be as per Nephrology because of the patient's renal dysfunction. The patient's clinical course will be followed closely. TR/CHRISTIANO Record Of [place] [address] [place] [address] NAME: LEIDY NASH : 44 STATUS : ADM IN PAT#: [id number] AGE: 76 ADM/REG DATE : 01/19/17 MR#: [id number] REPORT SERV DATE: 01/23/17 DICTATED BY: MYKEL SWANN DATE: 01/20/17 REPORT STATUS : Draft TRANSCRIBED BY: CHRISTIANO DATE: 01/20/17 Mykel Swann M.D. / [id number] CC: Eber Kahn DO
[2017-01-19 20:16] LABS: BASOPHILS 0.1 %; BASOPHILS ABSOLUTE 0.02 10/3/uL (0.0-0.16); EOSINOPHILS 0.1 %; EOSINOPHILS ABSOLUTE 0.02 10/3/uL (0.0-0.53); ER CBC TAT 0 Hrs 13 Mins; HEMATOCRIT 27.8 % (40.0-51.0); HEMOGLOBIN 8.9 g/dL (13.6-17.8); IMMATURE GRANULOCYTES 0.3 %; IMMATURE GRANULOCYTES ABSOLUTE 0.05 10/3/uL (0.0-0.11); LYMPHOCYTES 9.9 %; LYMPHOCYTES ABSOLUTE 1.85 10/3/uL (0.67-4.30); MANUAL DIFF NO %; MEAN CORPUSCULAR HEMOGLOB 25.5 pg (26.0-34.0); MEAN CORPUSCULAR VOLUME 79.7 fL (80-100); MEAN PLATELET VOLUME 8.9 fL (9.2-13.0); MONOCYTES 5.1 %; MONOCYTES ABSOLUTE 0.95 10/3/uL (0.21-1.20); NEUTROPHILS 84.5 %; NEUTROPHILS ABSOLUTE 15.79 10/3/uL (2.02-8.40); PLATELET COUNT 695 10/3/uL (150-400); RBC DISTRIBUTION WIDTH 16.9 % (12.0-16.0); RED CELL COUNT 3.49 10/6/uL (4.7-6.1); WHITE BLOOD CELLS 18.7 10/3/uL (4.5-10.5)
[2017-01-19 20:24] LABS: INTERNATIONAL NORMAL RATI 1.5 UNITS (-); PARTIAL THROMBO TIME 36.1 SEC (22.5-37.2); PROTIME (NOT ORD) 17.6 SEC (12.0-14.5)
[2017-01-19 20:27] LABS: D-DIMER QUANTITATIVE 2.44 ug/mLFEU (< 0.50)
[2017-01-19 20:34] LABS: BUN (BLOOD UREA NITROGEN) 31 MG/DL (6-23); CALCIUM, SERUM 9.1 MG/DL (8.5-10.4); CHLORIDE, SERUM 102 MMOL/L (96-112); CO2 (CARBON DIOXIDE) 22 MMOL/L (24-34); CREATININE 2.39 MG/DL (0.70-1.30); GFR AFRICAN AMERICAN 30 ML/MIN (>=60); GFR NON AFRICAN AMERICAN 26 ML/MIN (>=60); GLUCOSE, SERUM 196 MG/DL (60-99); SODIUM, SERUM 138 MMOL/L (135-148)
[2017-01-19 20:35] LABS: CHEST PAIN PROFILE TAT 0 Hrs 32 Mins
[2017-01-19] MEDS ORDERED: GLUCOPHAGE1000 MG PO (22:41)
[2017-01-19] MEDS ORDERED: RYTHMOL150 MG PO (22:41)
[2017-01-19] MEDS ORDERED: PROAIR HFA INH (22:41)
[2017-01-19] MEDS ORDERED: PRIM50B PO (22:41)
[2017-01-19] MEDS ORDERED: MEVACOR PO (22:42)
[2017-01-19] MEDS ORDERED: PRILO PO (22:42)
[2017-01-19] MEDS ORDERED: ULTRAM50 PO (22:42)
[2017-01-19] MEDS ORDERED: ISOSORB DIN30 MG PO (22:43)
[2017-01-19] MEDS ORDERED: HALF81 PO (22:44)
[2017-01-19] MEDS ORDERED: KLOR-CON M2020 MEQ PO (22:44)
[2017-01-19] MEDS ORDERED: HCTZ12.5 PO (22:44)
[2017-01-19] MEDS ORDERED: COZ25 PO (22:45)
[2017-01-19] MEDS ORDERED: TOPXL25 PO (22:45)
[2017-01-20 07:03] LABS: BASOPHILS 0.1 %; BASOPHILS ABSOLUTE 0.02 10/3/uL (0.0-0.16); EOSINOPHILS 0.4 %; EOSINOPHILS ABSOLUTE 0.07 10/3/uL (0.0-0.53); HEMOGLOBIN 8.6 g/dL (13.6-17.8); IMMATURE GRANULOCYTES 0.4 %; IMMATURE GRANULOCYTES ABSOLUTE 0.07 10/3/uL (0.0-0.11); LYMPHOCYTES 9.4 %; LYMPHOCYTES ABSOLUTE 1.72 10/3/uL (0.67-4.30); MANUAL DIFF NO %; MEAN CORPUS HGB CONC 31.9 g/dL (32.0-36.0); MEAN CORPUSCULAR VOLUME 78.5 fL (80-100); MEAN PLATELET VOLUME 9.1 fL (9.2-13.0); MONOCYTES 4.1 %; MONOCYTES ABSOLUTE 0.75 10/3/uL (0.21-1.20); NEUTROPHILS 85.6 %; NEUTROPHILS ABSOLUTE 15.59 10/3/uL (2.02-8.40); PLATELET COUNT 636 10/3/uL (150-400); RBC DISTRIBUTION WIDTH 17.2 % (12.0-16.0); RED CELL COUNT 3.44 10/6/uL (4.7-6.1); WHITE BLOOD CELLS 18.2 10/3/uL (4.5-10.5)
[2017-01-20 07:25] LABS: BUN (BLOOD UREA NITROGEN) 36 MG/DL (6-23); CALCIUM, SERUM 8.7 MG/DL (8.5-10.4); CHLORIDE, SERUM 107 MMOL/L (96-112); CO2 (CARBON DIOXIDE) 21 MMOL/L (24-34); CREATININE 2.15 MG/DL (0.70-1.30); GFR AFRICAN AMERICAN 34 ML/MIN (>=60); GFR NON AFRICAN AMERICAN 29 ML/MIN (>=60); GLUCOSE, SERUM 178 MG/DL (60-99); PHOSPHORUS, SERUM 4.2 MG/DL (2.5-4.5); POTASSIUM, SERUM 4.2 MMOL/L (3.5-5.3); SODIUM, SERUM 140 MMOL/L (135-148); ULTRASENSITIVE TSH 0.344 MCIU/ML (0.358-3.740)
[2017-01-20 11:15] LABS: ASCORBIC ACID (UR NOT ORDER) NEG (NEG); BILIRUBIN, URINE NEGATIVE (NEG); KETONE, URINE TRACE MG/DL (NEG); LEUKOCYTE ESTERASE(NOT OR NEG (NEG); NITRITE (URINE) NEG (NEG); WBC (NOT ORDERED) (RFLEX) 5 (0-5)
[2017-01-20 11:36] LABS: PROCALCITONIN 2.52 ng/mL (<0.5)
[2017-01-20 11:55] LABS: UR PROTEIN/CREAT RATIO 0.78 (< 0.2)
[2017-01-20 13:09] LABS: CHOLESTEROL 105 MG/DL (< 200); HDL CHOLESTEROL 15 MG/DL (> 39); LDL CHOLESTEROL 59 MG/DL (< 130); NON-HDL CHOLESTEROL 90 MG/DL (< 160); TRIGLYCERIDE 155 MG/DL (< 150)
[2017-01-20 19:18] LABS: ALBUMIN 2.5 G/DL (3.5-5.0)
[2017-01-21 04:02] LABS: BASOPHILS 0.1 %; BASOPHILS ABSOLUTE 0.01 10/3/uL (0.0-0.16); EOSINOPHILS 0.8 %; EOSINOPHILS ABSOLUTE 0.11 10/3/uL (0.0-0.53); HEMOGLOBIN 7.2 g/dL (13.6-17.8); IMMATURE GRANULOCYTES 0.3 %; IMMATURE GRANULOCYTES ABSOLUTE 0.05 10/3/uL (0.0-0.11); LYMPHOCYTES 7.2 %; LYMPHOCYTES ABSOLUTE 1.03 10/3/uL (0.67-4.30); MEAN CORPUSCULAR VOLUME 78.1 fL (80-100); MEAN PLATELET VOLUME 9.2 fL (9.2-13.0); MONOCYTES 6.7 %; MONOCYTES ABSOLUTE 0.96 10/3/uL (0.21-1.20); NEUTROPHILS 84.9 %; NEUTROPHILS ABSOLUTE 12.18 10/3/uL (2.02-8.40); PLATELET COUNT 574 10/3/uL (150-400); RBC DISTRIBUTION WIDTH 17.1 % (12.0-16.0); RED CELL COUNT 2.88 10/6/uL (4.7-6.1); WHITE BLOOD CELLS 14.3 10/3/uL (4.5-10.5)
[2017-01-21 04:03] LABS: HEMATOCRIT 22.5 % (40.0-51.0); MANUAL DIFF NO %
[2017-01-21 04:09] LABS: INTERNATIONAL NORMAL RATI 1.5 UNITS (-); PARTIAL THROMBO TIME 34.6 SEC (22.5-37.2); PROTIME (NOT ORD) 18.4 SEC (12.0-14.5)
[2017-01-21 04:14] LABS: CALCIUM, SERUM 8.1 MG/DL (8.5-10.4); CHLORIDE, SERUM 105 MMOL/L (96-112); CO2 (CARBON DIOXIDE) 20 MMOL/L (24-34); GLUCOSE, SERUM 210 MG/DL (60-99); POTASSIUM, SERUM 4.4 MMOL/L (3.5-5.3); SODIUM, SERUM 137 MMOL/L (135-148)
[2017-01-21 04:21] LABS: ALBUMIN 1.9 G/DL (3.5-5.0); BUN (BLOOD UREA NITROGEN) 27 MG/DL (6-23); CREATININE 1.54 MG/DL (0.70-1.30); GFR AFRICAN AMERICAN 51 ML/MIN (>=60); GFR NON AFRICAN AMERICAN 44 ML/MIN (>=60); PHOSPHORUS, SERUM 3.2 MG/DL (2.5-4.5)
[2017-01-22 07:21] LABS: ALBUMIN 1.9 G/DL (3.5-5.0); CALCIUM, SERUM 8.1 MG/DL (8.5-10.4); CHLORIDE, SERUM 108 MMOL/L (96-112); CO2 (CARBON DIOXIDE) 19 MMOL/L (24-34); CREATININE 1.36 MG/DL (0.70-1.30); GFR AFRICAN AMERICAN 59 ML/MIN (>=60); GFR NON AFRICAN AMERICAN 51 ML/MIN (>=60); PHOSPHORUS, SERUM 3.5 MG/DL (2.5-4.5); POTASSIUM, SERUM 4.7 MMOL/L (3.5-5.3); SODIUM, SERUM 141 MMOL/L (135-148)
[2017-01-22 07:23] LABS: BUN (BLOOD UREA NITROGEN) 20 MG/DL (6-23); GLUCOSE, SERUM 167 MG/DL (60-99)
[2017-01-22 07:28] LABS: BASOPHILS 0.2 %; BASOPHILS ABSOLUTE 0.02 10/3/uL (0.0-0.16); EOSINOPHILS 1.9 %; EOSINOPHILS ABSOLUTE 0.23 10/3/uL (0.0-0.53); IMMATURE GRANULOCYTES 0.5 %; IMMATURE GRANULOCYTES ABSOLUTE 0.06 10/3/uL (0.0-0.11); LYMPHOCYTES 8.4 %; LYMPHOCYTES ABSOLUTE 1.01 10/3/uL (0.67-4.30); MEAN CORPUS HGB CONC 31.4 g/dL (32.0-36.0); MEAN CORPUSCULAR HEMOGLOB 24.5 pg (26.0-34.0); MEAN PLATELET VOLUME 9.3 fL (9.2-13.0); MONOCYTES 8.3 %; NEUTROPHILS 80.7 %; NEUTROPHILS ABSOLUTE 9.68 10/3/uL (2.02-8.40); PLATELET COUNT 521 10/3/uL (150-400); RBC DISTRIBUTION WIDTH 17.1 % (12.0-16.0); RED CELL COUNT 2.82 10/6/uL (4.7-6.1)
[2017-01-22 07:31] LABS: HEMOGLOBIN 6.9 g/dL (13.6-17.8)
[2017-01-22 07:32] LABS: MANUAL DIFF NO %
[2017-01-23 05:07] LABS: BASOPHILS 0.2 %; BASOPHILS ABSOLUTE 0.02 10/3/uL (0.0-0.16); EOSINOPHILS 2.5 %; EOSINOPHILS ABSOLUTE 0.33 10/3/uL (0.0-0.53); HEMATOCRIT 24.4 % (40.0-51.0); HEMOGLOBIN 7.8 g/dL (13.6-17.8); IMMATURE GRANULOCYTES 0.5 %; IMMATURE GRANULOCYTES ABSOLUTE 0.07 10/3/uL (0.0-0.11); LYMPHOCYTES 8.7 %; LYMPHOCYTES ABSOLUTE 1.13 10/3/uL (0.67-4.30); MANUAL DIFF NO %; MEAN CORPUSCULAR HEMOGLOB 25.3 pg (26.0-34.0); MEAN CORPUSCULAR VOLUME 79.2 fL (80-100); MEAN PLATELET VOLUME 9.6 fL (9.2-13.0); MONOCYTES 8.3 %; MONOCYTES ABSOLUTE 1.07 10/3/uL (0.21-1.20); NEUTROPHILS 79.8 %; NEUTROPHILS ABSOLUTE 10.34 10/3/uL (2.02-8.40); PLATELET COUNT 535 10/3/uL (150-400); RBC DISTRIBUTION WIDTH 17.7 % (12.0-16.0); RED CELL COUNT 3.08 10/6/uL (4.7-6.1)
[2017-01-23 05:22] LABS: ALBUMIN 1.9 G/DL (3.5-5.0); BUN (BLOOD UREA NITROGEN) 21 MG/DL (6-23); CALCIUM, SERUM 8.8 MG/DL (8.5-10.4); CHLORIDE, SERUM 108 MMOL/L (96-112); CO2 (CARBON DIOXIDE) 18 MMOL/L (24-34); CREATININE 1.53 MG/DL (0.70-1.30); GFR AFRICAN AMERICAN 51 ML/MIN (>=60); GFR NON AFRICAN AMERICAN 44 ML/MIN (>=60); GLUCOSE, SERUM 182 MG/DL (60-99); PHOSPHORUS, SERUM 2.7 MG/DL (2.5-4.5); POTASSIUM, SERUM 4.3 MMOL/L (3.5-5.3); SODIUM, SERUM 139 MMOL/L (135-148)
[2017-01-24 05:26] LABS: BASOPHILS 0.4 %; BASOPHILS ABSOLUTE 0.06 10/3/uL (0.0-0.16); EOSINOPHILS 2.1 %; EOSINOPHILS ABSOLUTE 0.29 10/3/uL (0.0-0.53); HEMATOCRIT 26.8 % (40.0-51.0); HEMOGLOBIN 8.7 g/dL (13.6-17.8); IMMATURE GRANULOCYTES 0.4 %; IMMATURE GRANULOCYTES ABSOLUTE 0.06 10/3/uL (0.0-0.11); LYMPHOCYTES 11.3 %; LYMPHOCYTES ABSOLUTE 1.56 10/3/uL (0.67-4.30); MEAN CORPUS HGB CONC 32.5 g/dL (32.0-36.0); MEAN PLATELET VOLUME 9.7 fL (9.2-13.0); MONOCYTES 10.3 %; MONOCYTES ABSOLUTE 1.42 10/3/uL (0.21-1.20); NEUTROPHILS 75.5 %; NEUTROPHILS ABSOLUTE 10.43 10/3/uL (2.02-8.40); PLATELET COUNT 512 10/3/uL (150-400); RBC DISTRIBUTION WIDTH 17.9 % (12.0-16.0); RED CELL COUNT 3.35 10/6/uL (4.7-6.1); WHITE BLOOD CELLS 13.8 10/3/uL (4.5-10.5)
[2017-01-24 05:28] LABS: MANUAL DIFF NO %
[2017-01-24 05:39] LABS: ALBUMIN 1.8 G/DL (3.5-5.0); CHLORIDE, SERUM 108 MMOL/L (96-112); CO2 (CARBON DIOXIDE) 19 MMOL/L (24-34); GFR AFRICAN AMERICAN 62 ML/MIN (>=60); GFR NON AFRICAN AMERICAN 54 ML/MIN (>=60); GLUCOSE, SERUM 153 MG/DL (60-99); PHOSPHORUS, SERUM 3.3 MG/DL (2.5-4.5); POTASSIUM, SERUM 4.4 MMOL/L (3.5-5.3); SODIUM, SERUM 139 MMOL/L (135-148)
[2017-01-24 06:02] LABS: BUN (BLOOD UREA NITROGEN) 14 MG/DL (6-23)
[2017-01-24 11:48] LABS: ALLENS TEST Pos; BE (BASE EXCESS) -3.9 MEQ/L (0 +/- 2.5); CARBOXYHEMOGLOBIN 0.7 % (0-3); HCO3 (ACTUAL BICARBONATE) 19.8 MEQ/L (23-27); HEMOBLOGIN CONTENT 9.2 G/DL (14-18); INSTRUMENT SERIAL # 8083; METHEMOGLOBIN 0.2 % (0-3); O2 CONTENT 11.9 VOL% (18-24); PCO2 (CO2 TENSION) 31 MMHG (35-45); PO2 (O2 TENSION) 66 MMHG (79-93); SAMPLE Arterial; pH 7.42 (7.37-7.43)
[2017-01-25 05:19] LABS: BASOPHILS 0.4 %; BASOPHILS ABSOLUTE 0.05 10/3/uL (0.0-0.16); EOSINOPHILS 3.3 %; EOSINOPHILS ABSOLUTE 0.38 10/3/uL (0.0-0.53); HEMATOCRIT 25.6 % (40.0-51.0); HEMOGLOBIN 8.3 g/dL (13.6-17.8); IMMATURE GRANULOCYTES 0.6 %; IMMATURE GRANULOCYTES ABSOLUTE 0.07 10/3/uL (0.0-0.11); LYMPHOCYTES 10.6 %; LYMPHOCYTES ABSOLUTE 1.21 10/3/uL (0.67-4.30); MEAN CORPUS HGB CONC 32.4 g/dL (32.0-36.0); MEAN CORPUSCULAR HEMOGLOB 25.9 pg (26.0-34.0); MEAN PLATELET VOLUME 9.4 fL (9.2-13.0); MONOCYTES 12.4 %; MONOCYTES ABSOLUTE 1.42 10/3/uL (0.21-1.20); NEUTROPHILS 72.7 %; NEUTROPHILS ABSOLUTE 8.32 10/3/uL (2.02-8.40); PLATELET COUNT 494 10/3/uL (150-400); RBC DISTRIBUTION WIDTH 18.3 % (12.0-16.0); WHITE BLOOD CELLS 11.5 10/3/uL (4.5-10.5)
[2017-01-25 05:21] LABS: A/G RATIO 0.3 (0.7-1.9); ALBUMIN 1.8 G/DL (3.5-5.0); ALKALINE PHOSPHATASE 204 U/L (45-117); BUN (BLOOD UREA NITROGEN) 14 MG/DL (6-23); CALCIUM, SERUM 8.8 MG/DL (8.5-10.4); CHLORIDE, SERUM 106 MMOL/L (96-112); CO2 (CARBON DIOXIDE) 20 MMOL/L (24-34); CREATININE 1.39 MG/DL (0.70-1.30); GFR AFRICAN AMERICAN 57 ML/MIN (>=60); GFR NON AFRICAN AMERICAN 50 ML/MIN (>=60); GLOBULIN 5.7 G/DL (2.5-4.1); GLUCOSE, SERUM 153 MG/DL (60-99); PHOSPHORUS, SERUM 3.8 MG/DL (2.5-4.5); POTASSIUM, SERUM 4.3 MMOL/L (3.5-5.3); SGOT(AST) 86 U/L (5-40); SGPT(ALT) 72 U/L (5-65); SODIUM, SERUM 137 MMOL/L (135-148); TOTAL BILIRUBIN 0.7 MG/DL (0-1.2); TOTAL PROTEIN 7.5 G/DL (6.0-8.5)
[2017-01-25 05:22] LABS: MANUAL DIFF NO %
[2017-01-26 05:39] LABS: BASOPHILS 0.4 %; BASOPHILS ABSOLUTE 0.04 10/3/uL (0.0-0.16); EOSINOPHILS 3.4 %; EOSINOPHILS ABSOLUTE 0.39 10/3/uL (0.0-0.53); HEMATOCRIT 25.8 % (40.0-51.0); HEMOGLOBIN 8.3 g/dL (13.6-17.8); IMMATURE GRANULOCYTES 0.4 %; IMMATURE GRANULOCYTES ABSOLUTE 0.05 10/3/uL (0.0-0.11); LYMPHOCYTES 11.5 %; MEAN CORPUS HGB CONC 32.2 g/dL (32.0-36.0); MEAN CORPUSCULAR HEMOGLOB 25.8 pg (26.0-34.0); MEAN CORPUSCULAR VOLUME 80.1 fL (80-100); MEAN PLATELET VOLUME 9.2 fL (9.2-13.0); MONOCYTES 10.8 %; MONOCYTES ABSOLUTE 1.23 10/3/uL (0.21-1.20); NEUTROPHILS 73.5 %; NEUTROPHILS ABSOLUTE 8.34 10/3/uL (2.02-8.40); PLATELET COUNT 464 10/3/uL (150-400); RBC DISTRIBUTION WIDTH 18.6 % (12.0-16.0); RED CELL COUNT 3.22 10/6/uL (4.7-6.1); WHITE BLOOD CELLS 11.4 10/3/uL (4.5-10.5)
[2017-01-26 05:46] LABS: MANUAL DIFF NO %
[2017-01-26 05:57] LABS: ALBUMIN 1.7 G/DL (3.5-5.0); BUN (BLOOD UREA NITROGEN) 13 MG/DL (6-23); CALCIUM, SERUM 8.8 MG/DL (8.5-10.4); CHLORIDE, SERUM 105 MMOL/L (96-112); CO2 (CARBON DIOXIDE) 22 MMOL/L (24-34); CREATININE 1.34 MG/DL (0.70-1.30); GFR AFRICAN AMERICAN 60 ML/MIN (>=60); GFR NON AFRICAN AMERICAN 52 ML/MIN (>=60); GLUCOSE, SERUM 142 MG/DL (60-99); PHOSPHORUS, SERUM 3.7 MG/DL (2.5-4.5); POTASSIUM, SERUM 4.1 MMOL/L (3.5-5.3); SODIUM, SERUM 137 MMOL/L (135-148)
[2017-01-27 01:52] LABS: BASOPHILS 0.3 %; BASOPHILS ABSOLUTE 0.03 10/3/uL (0.0-0.16); EOSINOPHILS 3.4 %; EOSINOPHILS ABSOLUTE 0.36 10/3/uL (0.0-0.53); HEMATOCRIT 28.3 % (40.0-51.0); HEMOGLOBIN 9.1 g/dL (13.6-17.8); IMMATURE GRANULOCYTES 0.6 %; IMMATURE GRANULOCYTES ABSOLUTE 0.06 10/3/uL (0.0-0.11); LYMPHOCYTES 12.4 %; LYMPHOCYTES ABSOLUTE 1.31 10/3/uL (0.67-4.30); MEAN CORPUS HGB CONC 32.2 g/dL (32.0-36.0); MEAN CORPUSCULAR HEMOGLOB 25.9 pg (26.0-34.0); MEAN CORPUSCULAR VOLUME 80.4 fL (80-100); MEAN PLATELET VOLUME 9.2 fL (9.2-13.0); MONOCYTES 10.3 %; MONOCYTES ABSOLUTE 1.09 10/3/uL (0.21-1.20); NEUTROPHILS ABSOLUTE 7.71 10/3/uL (2.02-8.40); PLATELET COUNT 467 10/3/uL (150-400); RBC DISTRIBUTION WIDTH 18.9 % (12.0-16.0); RED CELL COUNT 3.52 10/6/uL (4.7-6.1); WHITE BLOOD CELLS 10.6 10/3/uL (4.5-10.5)
[2017-01-27 01:53] LABS: MANUAL DIFF NO %
[2017-01-27 02:11] LABS: A/G RATIO 0.3 (0.7-1.9); ALBUMIN 1.8 G/DL (3.5-5.0); BUN (BLOOD UREA NITROGEN) 12 MG/DL (6-23); CALCIUM, SERUM 8.5 MG/DL (8.5-10.4); CHLORIDE, SERUM 105 MMOL/L (96-112); CO2 (CARBON DIOXIDE) 25 MMOL/L (24-34); CREATININE 1.57 MG/DL (0.70-1.30); GFR AFRICAN AMERICAN 50 ML/MIN (>=60); GFR NON AFRICAN AMERICAN 43 ML/MIN (>=60); GLOBULIN 6.2 G/DL (2.5-4.1); GLUCOSE, SERUM 154 MG/DL (60-99); SGOT(AST) 58 U/L (5-40); SGPT(ALT) 57 U/L (5-65); SODIUM, SERUM 139 MMOL/L (135-148); TOTAL BILIRUBIN 1.1 MG/DL (0-1.2)
[2017-01-27 02:13] LABS: ALKALINE PHOSPHATASE 189 U/L (45-117); TROPONIN I 1.25 NG/ML (<0.05)
[2017-01-27 04:46] LABS: BE (BASE EXCESS) -3.5 MEQ/L (0 +/- 2.5); CARBOXYHEMOGLOBIN 0.5 % (0-3); HCO3 (ACTUAL BICARBONATE) 20.7 MEQ/L (23-27); HEMOBLOGIN CONTENT 9.7 G/DL (14-18); INSTRUMENT SERIAL # 8083; METHEMOGLOBIN 0.4 % (0-3); O2 CONTENT 12.8 VOL% (18-24); PCO2 (CO2 TENSION) 34 MMHG (35-45); PO2 (O2 TENSION) 73 MMHG (79-93)
[2017-01-27 04:47] LABS: ALLENS TEST Pos; OPERATOR ID 17589; SAMPLE Arterial
[2017-01-28 07:21] LABS: BASOPHILS 0.2 %; BASOPHILS ABSOLUTE 0.04 10/3/uL (0.0-0.16); EOSINOPHILS 1.2 %; HEMATOCRIT 26.7 % (40.0-51.0); HEMOGLOBIN 8.4 g/dL (13.6-17.8); IMMATURE GRANULOCYTES 0.6 %; LYMPHOCYTES 5.7 %; LYMPHOCYTES ABSOLUTE 0.98 10/3/uL (0.67-4.30); MEAN CORPUS HGB CONC 31.5 g/dL (32.0-36.0); MEAN CORPUSCULAR HEMOGLOB 25.8 pg (26.0-34.0); MEAN CORPUSCULAR VOLUME 81.9 fL (80-100); MEAN PLATELET VOLUME 9.1 fL (9.2-13.0); MONOCYTES 8.9 %; MONOCYTES ABSOLUTE 1.53 10/3/uL (0.21-1.20); NEUTROPHILS 83.4 %; NEUTROPHILS ABSOLUTE 14.36 10/3/uL (2.02-8.40); PLATELET COUNT 396 10/3/uL (150-400); RBC DISTRIBUTION WIDTH 19.1 % (12.0-16.0); RED CELL COUNT 3.26 10/6/uL (4.7-6.1)
[2017-01-28 07:22] LABS: MANUAL DIFF NO %; WHITE BLOOD CELLS 17.2 10/3/uL (4.5-10.5)
[2017-01-28 07:46] LABS: A/G RATIO 0.3 (0.7-1.9); ALBUMIN 1.8 G/DL (3.5-5.0); CALCIUM, SERUM 8.7 MG/DL (8.5-10.4); CHLORIDE, SERUM 107 MMOL/L (96-112); CO2 (CARBON DIOXIDE) 21 MMOL/L (24-34); GLOBULIN 6.2 G/DL (2.5-4.1); SGOT(AST) 31 U/L (5-40); SGPT(ALT) 37 U/L (5-65); SODIUM, SERUM 139 MMOL/L (135-148)
[2017-01-28 07:50] LABS: BUN (BLOOD UREA NITROGEN) 22 MG/DL (6-23); CREATININE 2.46 MG/DL (0.70-1.30); GFR AFRICAN AMERICAN 29 ML/MIN (>=60); GFR NON AFRICAN AMERICAN 25 ML/MIN (>=60)
[2017-01-28 07:51] LABS: ALKALINE PHOSPHATASE 159 U/L (45-117); GLUCOSE, SERUM 192 MG/DL (60-99); PHOSPHORUS, SERUM 4.7 MG/DL (2.5-4.5); TOTAL BILIRUBIN 0.6 MG/DL (0-1.2); TROPONIN I 0.61 NG/ML (<0.05)
[2017-01-29 06:45] LABS: BASOPHILS 0.1 %; BASOPHILS ABSOLUTE 0.02 10/3/uL (0.0-0.16); EOSINOPHILS 1.7 %; EOSINOPHILS ABSOLUTE 0.23 10/3/uL (0.0-0.53); HEMATOCRIT 25.5 % (40.0-51.0); HEMOGLOBIN 8.2 g/dL (13.6-17.8); IMMATURE GRANULOCYTES 0.4 %; IMMATURE GRANULOCYTES ABSOLUTE 0.05 10/3/uL (0.0-0.11); LYMPHOCYTES 7.1 %; LYMPHOCYTES ABSOLUTE 0.95 10/3/uL (0.67-4.30); MEAN CORPUS HGB CONC 32.2 g/dL (32.0-36.0); MEAN CORPUSCULAR HEMOGLOB 26.1 pg (26.0-34.0); MEAN CORPUSCULAR VOLUME 81.2 fL (80-100); MEAN PLATELET VOLUME 9.5 fL (9.2-13.0); MONOCYTES 7.9 %; MONOCYTES ABSOLUTE 1.05 10/3/uL (0.21-1.20); NEUTROPHILS 82.8 %; NEUTROPHILS ABSOLUTE 11.07 10/3/uL (2.02-8.40); PLATELET COUNT 398 10/3/uL (150-400); RBC DISTRIBUTION WIDTH 19.3 % (12.0-16.0); RED CELL COUNT 3.14 10/6/uL (4.7-6.1); WHITE BLOOD CELLS 13.4 10/3/uL (4.5-10.5)
[2017-01-29 06:47] LABS: MANUAL DIFF NO %
[2017-01-29 07:04] LABS: A/G RATIO 0.3 (0.7-1.9); ALBUMIN 1.6 G/DL (3.5-5.0); ALKALINE PHOSPHATASE 153 U/L (45-117); BUN (BLOOD UREA NITROGEN) 30 MG/DL (6-23); CALCIUM, SERUM 8.4 MG/DL (8.5-10.4); CHLORIDE, SERUM 107 MMOL/L (96-112); CO2 (CARBON DIOXIDE) 20 MMOL/L (24-34); CREATININE 2.62 MG/DL (0.70-1.30); GFR AFRICAN AMERICAN 27 ML/MIN (>=60); GFR NON AFRICAN AMERICAN 23 ML/MIN (>=60); GLOBULIN 6.4 G/DL (2.5-4.1); GLUCOSE, SERUM 141 MG/DL (60-99); PHOSPHORUS, SERUM 4.6 MG/DL (2.5-4.5); POTASSIUM, SERUM 5.5 MMOL/L (3.5-5.3); SGOT(AST) 55 U/L (5-40); SGPT(ALT) 38 U/L (5-65); SODIUM, SERUM 140 MMOL/L (135-148); TOTAL BILIRUBIN 0.5 MG/DL (0-1.2)
[2017-01-30 02:42] LABS: BE (BASE EXCESS) -3.6 MEQ/L (0 +/- 2.5); INSTRUMENT SERIAL # 8083; PCO2 (CO2 TENSION) 37 MMHG (35-45); PO2 (O2 TENSION) 72 MMHG (79-93); pH 7.38 (7.37-7.43)
[2017-01-30 02:43] LABS: ALLENS TEST Pos; CARBOXYHEMOGLOBIN 0.6 % (0-3); DEVICE NC; HCO3 (ACTUAL BICARBONATE) 21.1 MEQ/L (23-27); HEMOBLOGIN CONTENT 9.4 G/DL (14-18); METHEMOGLOBIN 0.3 % (0-3); O2 CONTENT 12.2 VOL% (18-24); OPERATOR ID 16503; SAMPLE Arterial
[2017-01-30 03:14] LABS: BASOPHILS 0.3 %; BASOPHILS ABSOLUTE 0.04 10/3/uL (0.0-0.16); EOSINOPHILS 1.8 %; EOSINOPHILS ABSOLUTE 0.24 10/3/uL (0.0-0.53); HEMATOCRIT 26.3 % (40.0-51.0); HEMOGLOBIN 8.3 g/dL (13.6-17.8); IMMATURE GRANULOCYTES 0.4 %; IMMATURE GRANULOCYTES ABSOLUTE 0.06 10/3/uL (0.0-0.11); LYMPHOCYTES ABSOLUTE 0.94 10/3/uL (0.67-4.30); MEAN CORPUS HGB CONC 31.6 g/dL (32.0-36.0); MEAN CORPUSCULAR HEMOGLOB 25.9 pg (26.0-34.0); MEAN CORPUSCULAR VOLUME 81.9 fL (80-100); MEAN PLATELET VOLUME 9.3 fL (9.2-13.0); MONOCYTES 4.9 %; MONOCYTES ABSOLUTE 0.65 10/3/uL (0.21-1.20); NEUTROPHILS 85.6 %; NEUTROPHILS ABSOLUTE 11.46 10/3/uL (2.02-8.40); PLATELET COUNT 446 10/3/uL (150-400); RBC DISTRIBUTION WIDTH 19.2 % (12.0-16.0); RED CELL COUNT 3.21 10/6/uL (4.7-6.1); WHITE BLOOD CELLS 13.4 10/3/uL (4.5-10.5)
[2017-01-30 03:16] LABS: MANUAL DIFF NO %
[2017-01-30 03:40] LABS: A/G RATIO 0.3 (0.7-1.9); ALBUMIN 1.8 G/DL (3.5-5.0); BUN (BLOOD UREA NITROGEN) 31 MG/DL (6-23); CALCIUM, SERUM 8.8 MG/DL (8.5-10.4); CHLORIDE, SERUM 109 MMOL/L (96-112); CO2 (CARBON DIOXIDE) 23 MMOL/L (24-34); CREATININE 2.74 MG/DL (0.70-1.30); GFR AFRICAN AMERICAN 25 ML/MIN (>=60); GFR NON AFRICAN AMERICAN 22 ML/MIN (>=60); GLOBULIN 6.8 G/DL (2.5-4.1); GLUCOSE, SERUM 164 MG/DL (60-99); PHOSPHORUS, SERUM 4.5 MG/DL (2.5-4.5); POTASSIUM, SERUM 5.7 MMOL/L (3.5-5.3); SGOT(AST) 102 U/L (5-40); SGPT(ALT) 53 U/L (5-65); SODIUM, SERUM 141 MMOL/L (135-148); TOTAL BILIRUBIN 0.5 MG/DL (0-1.2); TOTAL PROTEIN 8.6 G/DL (6.0-8.5)
[2017-01-30 03:43] LABS: ALKALINE PHOSPHATASE 183 U/L (45-117)
[2017-01-30 06:34] LABS: PROCALCITONIN <0.05 ng/mL (<0.5)
[2017-01-30 15:27] LABS: ASCORBIC ACID (UR NOT ORDER) NEG (NEG); BILIRUBIN, URINE NEGATIVE (NEG); KETONE, URINE NEGATIVE (NEG); LEUKOCYTE ESTERASE(NOT OR SMALL (NEG); WBC (NOT ORDERED) (RFLEX) 5 (0-5)
[2017-01-30 16:32] LABS: CREATININE RANDOM UR 43.5 MG/DL; CREATININE, URINE 43.5 MG/DL; UR PROTEIN/CREAT RATIO 0.97 (< 0.2)
[2017-01-31 06:35] LABS: BASOPHILS 0.7 %; BASOPHILS ABSOLUTE 0.07 10/3/uL (0.0-0.16); EOSINOPHILS 3.6 %; EOSINOPHILS ABSOLUTE 0.35 10/3/uL (0.0-0.53); HEMATOCRIT 24.8 % (40.0-51.0); HEMOGLOBIN 7.8 g/dL (13.6-17.8); IMMATURE GRANULOCYTES 0.6 %; IMMATURE GRANULOCYTES ABSOLUTE 0.06 10/3/uL (0.0-0.11); LYMPHOCYTES 7.7 %; LYMPHOCYTES ABSOLUTE 0.74 10/3/uL (0.67-4.30); MEAN CORPUS HGB CONC 31.5 g/dL (32.0-36.0); MEAN CORPUSCULAR HEMOGLOB 25.5 pg (26.0-34.0); MEAN PLATELET VOLUME 9.5 fL (9.2-13.0); MONOCYTES 5.3 %; MONOCYTES ABSOLUTE 0.51 10/3/uL (0.21-1.20); NEUTROPHILS 82.1 %; NEUTROPHILS ABSOLUTE 7.88 10/3/uL (2.02-8.40); PLATELET COUNT 426 10/3/uL (150-400); RBC DISTRIBUTION WIDTH 19.5 % (12.0-16.0); RED CELL COUNT 3.06 10/6/uL (4.7-6.1); WHITE BLOOD CELLS 9.6 10/3/uL (4.5-10.5)
[2017-01-31 06:36] LABS: MANUAL DIFF NO %
[2017-01-31 06:45] LABS: ALKALINE PHOSPHATASE 183 U/L (45-117); BUN (BLOOD UREA NITROGEN) 31 MG/DL (6-23); CALCIUM, SERUM 8.9 MG/DL (8.5-10.4); CHLORIDE, SERUM 105 MMOL/L (96-112); CO2 (CARBON DIOXIDE) 26 MMOL/L (24-34); COMPLEMENT C3 151 MG/DL (75-161); COMPLEMENT C4 30.8 MG/DL (16-47); CREATININE 2.82 MG/DL (0.70-1.30); GFR AFRICAN AMERICAN 24 ML/MIN (>=60); GFR NON AFRICAN AMERICAN 21 ML/MIN (>=60); GLUCOSE, SERUM 170 MG/DL (60-99); PHOSPHORUS, SERUM 5.3 MG/DL (2.5-4.5); SGPT(ALT) 74 U/L (5-65); SODIUM, SERUM 142 MMOL/L (135-148); TOTAL BILIRUBIN 0.4 MG/DL (0-1.2); TOTAL PROTEIN 8.6 G/DL (6.0-8.5)
[2017-01-31 06:46] LABS: A/G RATIO 0.4 (0.7-1.9); ALBUMIN 2.6 G/DL (3.5-5.0); POTASSIUM, SERUM 4.4 MMOL/L (3.5-5.3); SGOT(AST) 160 U/L (5-40)
[2017-01-31 13:07] LABS: ANA TITER <1:40 TITER
[2017-02-01 06:52] LABS: HEMATOCRIT 27.1 % (40.0-51.0); HEMOGLOBIN 8.2 g/dL (13.6-17.8); MEAN CORPUS HGB CONC 30.3 g/dL (32.0-36.0); MEAN CORPUSCULAR HEMOGLOB 25.2 pg (26.0-34.0); MEAN CORPUSCULAR VOLUME 83.4 fL (80-100); PLATELET COUNT 420 10/3/uL (150-400); RBC DISTRIBUTION WIDTH 19.7 % (12.0-16.0); RED CELL COUNT 3.25 10/6/uL (4.7-6.1); WHITE BLOOD CELLS 10.5 10/3/uL (4.5-10.5)
[2017-02-01 06:53] LABS: MANUAL DIFF YES %
[2017-02-01 07:06] LABS: ALBUMIN 2.5 G/DL (3.5-5.0); BUN (BLOOD UREA NITROGEN) 31 MG/DL (6-23); CALCIUM, SERUM 8.7 MG/DL (8.5-10.4); CHLORIDE, SERUM 104 MMOL/L (96-112); CO2 (CARBON DIOXIDE) 26 MMOL/L (24-34); GFR AFRICAN AMERICAN 24 ML/MIN (>=60); GFR NON AFRICAN AMERICAN 20 ML/MIN (>=60); GLUCOSE, SERUM 154 MG/DL (60-99); PHOSPHORUS, SERUM 5.5 MG/DL (2.5-4.5); SODIUM, SERUM 143 MMOL/L (135-148)
[2017-02-01 07:31] LABS: ANISOCYTOSIS 1+ (5-10/OIF) (0-5/OIF); BAND NEUTROPHILS 2 %; EOSINOPHILS 1 %; EOSINOPHILS ABSOLUTE (CALC) 0.11 10/3/uL (0.0-0.53); LYMPHOCYTES 9 %; LYMPHOCYTES ABSOLUTE (CALC) 0.95 10/3/uL (0.67-4.30); MONOCYTES 2 %; MONOCYTES ABSOLUTE (CALC) 0.21 10/3/uL (0.21-1.20); NEUTROPHILS ABSOLUTE (CALC) 9.24 10/3/uL (2.02-8.40); PLATELET ESTIMATE SLT INC (ADEQUATE); SEGMENTED NEUTROPHIL (0) 86 %; TOTAL NUCLEATED CELLS 100
[2017-02-02 06:20] LABS: ALBUMIN 2.3 G/DL (3.5-5.0); BUN (BLOOD UREA NITROGEN) 34 MG/DL (6-23); CALCIUM, SERUM 8.7 MG/DL (8.5-10.4); CHLORIDE, SERUM 102 MMOL/L (96-112); CO2 (CARBON DIOXIDE) 29 MMOL/L (24-34); CREATININE 2.84 MG/DL (0.70-1.30); GFR AFRICAN AMERICAN 24 ML/MIN (>=60); GFR NON AFRICAN AMERICAN 21 ML/MIN (>=60); PHOSPHORUS, SERUM 5.2 MG/DL (2.5-4.5); POTASSIUM, SERUM 3.2 MMOL/L (3.5-5.3); SODIUM, SERUM 142 MMOL/L (135-148)
[2017-02-02 06:25] LABS: GLUCOSE, SERUM 167 MG/DL (60-99)
[2017-02-02 06:33] LABS: BASOPHILS 0.7 %; BASOPHILS ABSOLUTE 0.07 10/3/uL (0.0-0.16); EOSINOPHILS ABSOLUTE 0.41 10/3/uL (0.0-0.53); HEMATOCRIT 24.9 % (40.0-51.0); HEMOGLOBIN 7.9 g/dL (13.6-17.8); IMMATURE GRANULOCYTES 0.4 %; IMMATURE GRANULOCYTES ABSOLUTE 0.04 10/3/uL (0.0-0.11); LYMPHOCYTES 11.2 %; LYMPHOCYTES ABSOLUTE 1.14 10/3/uL (0.67-4.30); MEAN CORPUS HGB CONC 31.7 g/dL (32.0-36.0); MEAN CORPUSCULAR HEMOGLOB 25.6 pg (26.0-34.0); MEAN PLATELET VOLUME 9.5 fL (9.2-13.0); MONOCYTES 8.2 %; MONOCYTES ABSOLUTE 0.84 10/3/uL (0.21-1.20); NEUTROPHILS 75.5 %; NEUTROPHILS ABSOLUTE 7.69 10/3/uL (2.02-8.40); PLATELET COUNT 503 10/3/uL (150-400); RBC DISTRIBUTION WIDTH 19.3 % (12.0-16.0); RED CELL COUNT 3.08 10/6/uL (4.7-6.1); WHITE BLOOD CELLS 10.2 10/3/uL (4.5-10.5)
[2017-02-02 06:38] LABS: MANUAL DIFF NO %; MEAN CORPUSCULAR VOLUME 80.8 fL (80-100)
[2017-02-03 06:59] LABS: BASOPHILS 0.5 %; BASOPHILS ABSOLUTE 0.06 10/3/uL (0.0-0.16); EOSINOPHILS 3.4 %; EOSINOPHILS ABSOLUTE 0.39 10/3/uL (0.0-0.53); HEMATOCRIT 24.4 % (40.0-51.0); HEMOGLOBIN 7.7 g/dL (13.6-17.8); IMMATURE GRANULOCYTES 0.3 %; IMMATURE GRANULOCYTES ABSOLUTE 0.04 10/3/uL (0.0-0.11); LYMPHOCYTES 9.6 %; MEAN CORPUS HGB CONC 31.6 g/dL (32.0-36.0); MEAN CORPUSCULAR HEMOGLOB 25.9 pg (26.0-34.0); MEAN CORPUSCULAR VOLUME 82.2 fL (80-100); MEAN PLATELET VOLUME 9.8 fL (9.2-13.0); MONOCYTES 7.9 %; MONOCYTES ABSOLUTE 0.91 10/3/uL (0.21-1.20); NEUTROPHILS 78.3 %; NEUTROPHILS ABSOLUTE 8.96 10/3/uL (2.02-8.40); PLATELET COUNT 482 10/3/uL (150-400); RBC DISTRIBUTION WIDTH 19.3 % (12.0-16.0); RED CELL COUNT 2.97 10/6/uL (4.7-6.1); WHITE BLOOD CELLS 11.5 10/3/uL (4.5-10.5)
[2017-02-03 07:05] LABS: MANUAL DIFF NO %
[2017-02-03 07:11] LABS: BUN (BLOOD UREA NITROGEN) 36 MG/DL (6-23); CALCIUM, SERUM 9.4 MG/DL (8.5-10.4); CHLORIDE, SERUM 101 MMOL/L (96-112); CO2 (CARBON DIOXIDE) 28 MMOL/L (24-34); CREATININE 2.96 MG/DL (0.70-1.30); GFR AFRICAN AMERICAN 23 ML/MIN (>=60); GFR NON AFRICAN AMERICAN 20 ML/MIN (>=60); GLUCOSE, SERUM 139 MG/DL (60-99); PHOSPHORUS, SERUM 4.4 MG/DL (2.5-4.5); POTASSIUM, SERUM 3.6 MMOL/L (3.5-5.3); SODIUM, SERUM 141 MMOL/L (135-148)
[2017-02-04 05:59] LABS: BASOPHILS 0.6 %; BASOPHILS ABSOLUTE 0.07 10/3/uL (0.0-0.16); EOSINOPHILS 3.4 %; EOSINOPHILS ABSOLUTE 0.37 10/3/uL (0.0-0.53); HEMOGLOBIN 8.5 g/dL (13.6-17.8); IMMATURE GRANULOCYTES 0.5 %; IMMATURE GRANULOCYTES ABSOLUTE 0.05 10/3/uL (0.0-0.11); LYMPHOCYTES 9.3 %; MEAN CORPUS HGB CONC 30.6 g/dL (32.0-36.0); MEAN CORPUSCULAR HEMOGLOB 25.2 pg (26.0-34.0); MEAN CORPUSCULAR VOLUME 82.5 fL (80-100); MEAN PLATELET VOLUME 9.4 fL (9.2-13.0); MONOCYTES 8.8 %; MONOCYTES ABSOLUTE 0.95 10/3/uL (0.21-1.20); NEUTROPHILS 77.4 %; NEUTROPHILS ABSOLUTE 8.33 10/3/uL (2.02-8.40); PLATELET COUNT 500 10/3/uL (150-400); RBC DISTRIBUTION WIDTH 19.3 % (12.0-16.0); RED CELL COUNT 3.37 10/6/uL (4.7-6.1); WHITE BLOOD CELLS 10.8 10/3/uL (4.5-10.5)
[2017-02-04 06:00] LABS: HEMATOCRIT 27.8 % (40.0-51.0); MANUAL DIFF NO %
[2017-02-04 06:11] LABS: ALBUMIN 2.8 G/DL (3.5-5.0); BUN (BLOOD UREA NITROGEN) 39 MG/DL (6-23); CALCIUM, SERUM 9.4 MG/DL (8.5-10.4); CHLORIDE, SERUM 97 MMOL/L (96-112); CO2 (CARBON DIOXIDE) 29 MMOL/L (24-34); CREATININE 2.84 MG/DL (0.70-1.30); GFR AFRICAN AMERICAN 24 ML/MIN (>=60); GFR NON AFRICAN AMERICAN 21 ML/MIN (>=60); GLUCOSE, SERUM 138 MG/DL (60-99); PHOSPHORUS, SERUM 4.6 MG/DL (2.5-4.5); POTASSIUM, SERUM 3.8 MMOL/L (3.5-5.3); SODIUM, SERUM 139 MMOL/L (135-148)
[2017-02-04 10:49] LABS: A/G RATIO 0.4 (0.7-1.9); ALKALINE PHOSPHATASE 159 U/L (45-117); GLOBULIN 6.5 G/DL (2.5-4.1); SGOT(AST) 52 U/L (5-40); SGPT(ALT) 49 U/L (5-65); TOTAL BILIRUBIN 0.7 MG/DL (0-1.2); TOTAL PROTEIN 9.3 G/DL (6.0-8.5)
[2017-02-05 00:29] LABS: CALCIUM, SERUM 8.8 MG/DL (8.5-10.4); CHLORIDE, SERUM 96 MMOL/L (96-112); CO2 (CARBON DIOXIDE) 30 MMOL/L (24-34); CREATININE 2.81 MG/DL (0.70-1.30); GFR AFRICAN AMERICAN 25 ML/MIN (>=60); GFR NON AFRICAN AMERICAN 21 ML/MIN (>=60); GLUCOSE, SERUM 150 MG/DL (60-99); POTASSIUM, SERUM 3.9 MMOL/L (3.5-5.3); SODIUM, SERUM 138 MMOL/L (135-148)
[2017-02-05 00:35] LABS: BUN (BLOOD UREA NITROGEN) 44 MG/DL (6-23)
[2017-02-05 07:10] LABS: BASOPHILS 0.6 %; BASOPHILS ABSOLUTE 0.07 10/3/uL (0.0-0.16); EOSINOPHILS 3.4 %; EOSINOPHILS ABSOLUTE 0.38 10/3/uL (0.0-0.53); HEMATOCRIT 26.2 % (40.0-51.0); IMMATURE GRANULOCYTES 0.4 %; IMMATURE GRANULOCYTES ABSOLUTE 0.04 10/3/uL (0.0-0.11); LYMPHOCYTES ABSOLUTE 1.12 10/3/uL (0.67-4.30); MEAN CORPUS HGB CONC 30.5 g/dL (32.0-36.0); MEAN CORPUSCULAR HEMOGLOB 25.1 pg (26.0-34.0); MEAN CORPUSCULAR VOLUME 82.1 fL (80-100); MEAN PLATELET VOLUME 9.7 fL (9.2-13.0); MONOCYTES 9.8 %; NEUTROPHILS 75.8 %; NEUTROPHILS ABSOLUTE 8.47 10/3/uL (2.02-8.40); PLATELET COUNT 519 10/3/uL (150-400); RBC DISTRIBUTION WIDTH 19.5 % (12.0-16.0); RED CELL COUNT 3.19 10/6/uL (4.7-6.1); WHITE BLOOD CELLS 11.2 10/3/uL (4.5-10.5)
[2017-02-05 07:11] LABS: MANUAL DIFF NO %
[2017-02-05 07:19] LABS: ALBUMIN 2.5 G/DL (3.5-5.0); BUN (BLOOD UREA NITROGEN) 45 MG/DL (6-23); CALCIUM, SERUM 9.5 MG/DL (8.5-10.4); CHLORIDE, SERUM 99 MMOL/L (96-112); CO2 (CARBON DIOXIDE) 31 MMOL/L (24-34); CREATININE 2.86 MG/DL (0.70-1.30); GFR AFRICAN AMERICAN 24 ML/MIN (>=60); GFR NON AFRICAN AMERICAN 21 ML/MIN (>=60); GLUCOSE, SERUM 133 MG/DL (60-99); PHOSPHORUS, SERUM 5.6 MG/DL (2.5-4.5); SODIUM, SERUM 141 MMOL/L (135-148)
[2017-02-06 06:30] LABS: ALBUMIN 2.4 G/DL (3.5-5.0); CALCIUM, SERUM 9.1 MG/DL (8.5-10.4); CHLORIDE, SERUM 97 MMOL/L (96-112); CO2 (CARBON DIOXIDE) 31 MMOL/L (24-34); CREATININE 2.85 MG/DL (0.70-1.30); GFR AFRICAN AMERICAN 24 ML/MIN (>=60); GFR NON AFRICAN AMERICAN 21 ML/MIN (>=60); PHOSPHORUS, SERUM 5.7 MG/DL (2.5-4.5); POTASSIUM, SERUM 3.7 MMOL/L (3.5-5.3); SODIUM, SERUM 141 MMOL/L (135-148)
[2017-02-06 06:33] LABS: BUN (BLOOD UREA NITROGEN) 49 MG/DL (6-23)
[2017-02-06 06:34] LABS: GLUCOSE, SERUM 129 MG/DL (60-99)
[2017-02-06 06:39] LABS: BASOPHILS 0.7 %; BASOPHILS ABSOLUTE 0.06 10/3/uL (0.0-0.16); EOSINOPHILS 3.9 %; EOSINOPHILS ABSOLUTE 0.36 10/3/uL (0.0-0.53); HEMATOCRIT 26.2 % (40.0-51.0); HEMOGLOBIN 7.8 g/dL (13.6-17.8); IMMATURE GRANULOCYTES 0.3 %; IMMATURE GRANULOCYTES ABSOLUTE 0.03 10/3/uL (0.0-0.11); LYMPHOCYTES 11.4 %; LYMPHOCYTES ABSOLUTE 1.04 10/3/uL (0.67-4.30); MEAN CORPUS HGB CONC 29.8 g/dL (32.0-36.0); MEAN CORPUSCULAR HEMOGLOB 24.6 pg (26.0-34.0); MEAN CORPUSCULAR VOLUME 82.6 fL (80-100); MEAN PLATELET VOLUME 9.5 fL (9.2-13.0); MONOCYTES 10.6 %; MONOCYTES ABSOLUTE 0.97 10/3/uL (0.21-1.20); NEUTROPHILS 73.1 %; PLATELET COUNT 483 10/3/uL (150-400); RBC DISTRIBUTION WIDTH 19.4 % (12.0-16.0); RED CELL COUNT 3.17 10/6/uL (4.7-6.1); WHITE BLOOD CELLS 9.2 10/3/uL (4.5-10.5)
[2017-02-06 06:52] LABS: MANUAL DIFF NO %
[2017-02-06 23:19] LABS: ANCA <1:20 (()); MYELOPEROXIDASE ANTIBODY <0.2 AI (<1.0); PROTEINASE 3 ANTIBODY 0.5 AI (<1.0)
[2017-02-07 06:45] LABS: BASOPHILS 0.6 %; BASOPHILS ABSOLUTE 0.06 10/3/uL (0.0-0.16); EOSINOPHILS 3.4 %; EOSINOPHILS ABSOLUTE 0.32 10/3/uL (0.0-0.53); IMMATURE GRANULOCYTES 0.3 %; IMMATURE GRANULOCYTES ABSOLUTE 0.03 10/3/uL (0.0-0.11); LYMPHOCYTES 12.5 %; LYMPHOCYTES ABSOLUTE 1.18 10/3/uL (0.67-4.30); MANUAL DIFF NO %; MEAN CORPUS HGB CONC 30.8 g/dL (32.0-36.0); MEAN CORPUSCULAR HEMOGLOB 25.4 pg (26.0-34.0); MEAN CORPUSCULAR VOLUME 82.5 fL (80-100); MEAN PLATELET VOLUME 9.6 fL (9.2-13.0); MONOCYTES 9.6 %; MONOCYTES ABSOLUTE 0.91 10/3/uL (0.21-1.20); NEUTROPHILS 73.6 %; NEUTROPHILS ABSOLUTE 6.95 10/3/uL (2.02-8.40); PLATELET COUNT 465 10/3/uL (150-400); RBC DISTRIBUTION WIDTH 19.7 % (12.0-16.0); RED CELL COUNT 3.15 10/6/uL (4.7-6.1); WHITE BLOOD CELLS 9.5 10/3/uL (4.5-10.5)
[2017-02-07 06:54] LABS: ALBUMIN 2.4 G/DL (3.5-5.0); BUN (BLOOD UREA NITROGEN) 49 MG/DL (6-23); CALCIUM, SERUM 8.9 MG/DL (8.5-10.4); CHLORIDE, SERUM 99 MMOL/L (96-112); CO2 (CARBON DIOXIDE) 31 MMOL/L (24-34); CREATININE 2.75 MG/DL (0.70-1.30); GFR AFRICAN AMERICAN 25 ML/MIN (>=60); GFR NON AFRICAN AMERICAN 22 ML/MIN (>=60); GLUCOSE, SERUM 121 MG/DL (60-99); PHOSPHORUS, SERUM 5.2 MG/DL (2.5-4.5); POTASSIUM, SERUM 3.7 MMOL/L (3.5-5.3); SODIUM, SERUM 138 MMOL/L (135-148)
[2017-02-08 06:24] LABS: BASOPHILS 0.4 %; BASOPHILS ABSOLUTE 0.04 10/3/uL (0.0-0.16); EOSINOPHILS 2.4 %; EOSINOPHILS ABSOLUTE 0.26 10/3/uL (0.0-0.53); HEMATOCRIT 27.9 % (40.0-51.0); HEMOGLOBIN 8.6 g/dL (13.6-17.8); IMMATURE GRANULOCYTES 0.3 %; IMMATURE GRANULOCYTES ABSOLUTE 0.03 10/3/uL (0.0-0.11); LYMPHOCYTES 12.9 %; MEAN CORPUS HGB CONC 30.8 g/dL (32.0-36.0); MEAN CORPUSCULAR HEMOGLOB 24.9 pg (26.0-34.0); MEAN CORPUSCULAR VOLUME 80.9 fL (80-100); MEAN PLATELET VOLUME 9.6 fL (9.2-13.0); MONOCYTES 8.6 %; MONOCYTES ABSOLUTE 0.93 10/3/uL (0.21-1.20); NEUTROPHILS 75.4 %; NEUTROPHILS ABSOLUTE 8.21 10/3/uL (2.02-8.40); PLATELET COUNT 556 10/3/uL (150-400); RBC DISTRIBUTION WIDTH 19.8 % (12.0-16.0); RED CELL COUNT 3.45 10/6/uL (4.7-6.1); WHITE BLOOD CELLS 10.9 10/3/uL (4.5-10.5)
[2017-02-08 06:29] LABS: MANUAL DIFF NO %
[2017-02-08 06:36] LABS: A/G RATIO 0.3 (0.7-1.9); ALBUMIN 2.4 G/DL (3.5-5.0); ALKALINE PHOSPHATASE 156 U/L (45-117); BUN (BLOOD UREA NITROGEN) 47 MG/DL (6-23); CALCIUM, SERUM 9.4 MG/DL (8.5-10.4); CHLORIDE, SERUM 99 MMOL/L (96-112); CO2 (CARBON DIOXIDE) 31 MMOL/L (24-34); CREATININE 2.76 MG/DL (0.70-1.30); GFR AFRICAN AMERICAN 25 ML/MIN (>=60); GFR NON AFRICAN AMERICAN 22 ML/MIN (>=60); GLOBULIN 7.2 G/DL (2.5-4.1); PHOSPHORUS, SERUM 5.2 MG/DL (2.5-4.5); SGOT(AST) 52 U/L (5-40); SGPT(ALT) 38 U/L (5-65); SODIUM, SERUM 140 MMOL/L (135-148); TOTAL BILIRUBIN 0.5 MG/DL (0-1.2); TOTAL PROTEIN 9.6 G/DL (6.0-8.5)
[2017-02-08 06:37] LABS: GLUCOSE, SERUM 163 MG/DL (60-99)
== END 2017-02-08 15:19 | DRG 280 ==
LOC: ER 20:25 → CDU1 23:59 → CDU2 01-20 03:18 → 2SO 01-20 18:32
PROVIDERS: Hospitalist; Internal Medicine; Internal Medicine Cardiovascular Disease; Internal Medicine Infectious Disease; Internal Medicine Nephrology; Internal Medicine Pulmonary Disease; Nurse Practitioner; Specialist
PROC: 4A023N7 Measurement of Cardiac Sampling and Pressure, Left Heart, Percutaneous Approach (ICD-10-PCS; principal; 2017-01-20)
PROC: B2151ZZ Fluoroscopy of Left Heart using Low Osmolar Contrast (ICD-10-PCS; 2017-01-20)
PROC: B2111ZZ Fluoroscopy of Multiple Coronary Arteries using Low Osmolar Contrast (ICD-10-PCS; 2017-01-20)
PROC: B246ZZ4 Ultrasonography of Right and Left Heart, Transesophageal (ICD-10-PCS; 2017-01-25)
PROC: 05HM33Z Insertion of Infusion Device into Right Internal Jugular Vein, Percutaneous Approach (ICD-10-PCS; 2017-01-26)
DX: I21.4 Non-ST elevation (NSTEMI) myocardial infarction (principal); A41.02 Sepsis due to Methicillin resistant Staphylococcus aureus; N17.0 Acute kidney failure with tubular necrosis; I33.0 Acute and subacute infective endocarditis; E43 Unspecified severe protein-calorie malnutrition; I31.9 Disease of pericardium, unspecified; E83.42 Hypomagnesemia; E11.22 Type 2 diabetes mellitus with diabetic chronic kidney disease; I48.91 Unspecified atrial fibrillation; B95.62 Methicillin resistant Staphylococcus aureus infection as the cause of diseases classified elsewhere; K08.9 Disorder of teeth and supporting structures, unspecified; E87.5 Hyperkalemia; Z51.5 Encounter for palliative care; N18.3 Chronic kidney disease, stage 3 (moderate); I12.9 Hypertensive chronic kidney disease with stage 1 through stage 4 chronic kidney disease, or unspecified chronic kidney disease; J43.9 Emphysema, unspecified; E11.9 Type 2 diabetes mellitus without complications; I25.10 Atherosclerotic heart disease of native coronary artery without angina pectoris; E78.5 Hyperlipidemia, unspecified; K21.9 Gastro-esophageal reflux disease without esophagitis; Z66 Do not resuscitate; K59.00 Constipation, unspecified; F10.21 Alcohol dependence, in remission; N28.1 Cyst of kidney, acquired; D64.9 Anemia, unspecified; Z99.81 Dependence on supplemental oxygen; Z95.5 Presence of coronary angioplasty implant and graft; Z79.84 Long term (current) use of oral hypoglycemic drugs; Z79.01 Long term (current) use of anticoagulants; Z87.891 Personal history of nicotine dependence
CPT/HCPCS: 36415; 36600; 71010; 71250; 74176; 78582; 80048; 80053; 80061; 80069; 80202; 81001; 82570; 82805; 82962; 83036; 83516; 83516-59; 83735; 83880; 84132; 84145; 84156; 84300; 84436; 84443; 84484; 84540; 85025; 85347; 85379; 85610; 85730; 86039; 86160; 86255; 86850; 86900; 86901; 86920; 87040; 87077; 87086; 87150; 87186; 93005; 93306; 93312; 93320; 93325; 93458; 94010; 94640; 94667; 94668; 96374; 96375; 97110-GP; 97116-GP; 97162-GP; 97530-GP; 99152; 99284; A9270-GY; A9540; A9567; C1769; C1894; J0878; J1170; J1885; J1956; J2250; J2405; J3010; J3370; P9016; P9047; Q9967

== ENCOUNTER 2017-04-05 18:34 | Inpatient (IN) | payer OTHER ==
--- NOTE | ~2017-04-05 | HP ---
History And Physical [address] [place]. [address] NAME: LEIDY NASH : 42 STATUS : ADM IN [facility] WITH [facility]#: [id number] AGE: 76 ADM/REG DATE : 04/05/17 MR#: [id number] REPORT SERV DATE: 04/05/17 DICTATED BY: DONNA DUNNE DATE: 04/05/17 REPORT STATUS : Draft TRANSCRIBED BY: MODL DATE: 04/05/17 DATE OF ADMISSION: 04/05/2017 CHIEF COMPLAINT: Persistent MRSA bacteremia/direct admission from Dr. Nichole, Infectious Disease office. HISTORY OF PRESENT ILLNESS: Obtained from the patient who is a rather very poor historian as well as from prior medical records as well as reports from Dr. Nichole, who has requested a direct admission for the patient. The patient is a very pleasant 76-year-old black man with past medical history significant for diabetes type 2, coronary artery disease, atrial fibrillation, who had recently suffered non-STEMI in 12/2016 with cardiac stent placement. The patient also had been diagnosed with MRSA bacteremia with MRSA endocarditis. The patient was initially on vancomycin secondary to presumed toxicity with nephrotoxicity and acute kidney injury on his chronic kidney disease. His vancomycin was discontinued and replaced by daptomycin. Therefore, the patient was discharged to senior care facility on 02/08/2017 to finish a course of daptomycin adjusted for renal function every 48 hours. The patient had finished the course of antibiotic on 03/03/2017 as recommended and has been home for up apparently 3 weeks as per the patient. The patient stated that he had a chance to have a followup with primary care provider as well as with his food cashier, Dr. Elmo Swann, since discharge from senior care facility. Apparently, the patient was seen in followup twice since discharge in mid January by Dr. 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 Therefore, Dr. Nichole had request Hospitalist Service to admit the patient as a direct admission for further management and evaluation. The patient denies any specific complaints of pain, shortness of breath, fever or chills, or rashes. He stated that he is feeling better, and despite being very stoic, he stated that his appetite increased, he is sleeping better, and overall was significant improvement since he was discharged from the hospital for senior care facility. There is no report of diarrhea. He stated that he has not lost any more weight according to his estimate. There is no report of dysuria or increased urinary frequency. No coughing. No URI like symptoms. He claims that he is compliant to his medications but he says the patient has restarted some of his previous medications and there is still confusion, my initial assessment if patient was supposed to restart all medications that were significantly changed or discontinued at the time of discharge from our hospital in mid January 2017. The patient stated that he restarted his metformin as he could not take insulin at home as he cannot administer himself any shots. He also states that his primary care provider had restarted on some of his pills but apparently there are bottles that are filled since December. Besides that, since the patient has significantly improved and he is not having any specific complaints related to his possible persistent bacteremia. PAST MEDICAL HISTORY: As above. Most recently, significant for MRSA bacteremia secondary to mitral valve endocarditis, admitted in the hospital from 01/19/2017 until 02/08/2017, the patient is not a good candidate for mitral valve surgery; history of pericarditis that admission as well non-STEMI, status post cardiac catheterization and cardiac stent placement; history of hypertension, essential; history of acute kidney injury on chronic History And Physical [address] [address] NAME: LEIDY NASH : 42 STATUS : ADM IN [facility] WITH [facility]#: [id number] AGE: 76 ADM/REG DATE : 04/05/17 MR#: [id number] REPORT SERV DATE: 04/05/17 DICTATED BY: DONNA DUNNE DATE: 04/05/17 REPORT STATUS : Draft TRANSCRIBED BY: MODL DATE: 04/05/17 kidney disease, stage 3 to stage 4, not a candidate for hemodialysis as well; history of COPD; history of diabetes type 2, previously not insulin dependent, the patient presently back on his metformin, avoiding insulin administration; history of hyperlipidemia; history of anemia, apparently anemia of chronic kidney disease; also with significant episodes of bleeding in the beginning of this year for which he was admitted and evaluated at [facility], at that time, patient was on Eliquis and he says that due to his significantly GI bleed, the patient was not continued on any anticoagulation or on antiplatelet therapy; history of atrial fibrillation, reportedly chronic; history of pulmonary edema during his previous admission; history of depression and anxiety with poor appetite and anorexia and severe malnutrition at the time of discharge on 02/08/2017; history of GERD without esophagitis with history of GI bleed; history of COPD; history of significant debilitation. PAST SURGICAL HISTORY: The patient had right upper lobectomy for "uncertain reason" unclear at this moment, history of cardiac catheterization and cardiac stent placement. FAMILY HISTORY: Significant for hypertension, coronary artery disease, and diabetes. SOCIAL HISTORY: He is , apparently still lives alone at this moment. He used to smoke 1 pack of cigarettes daily for over 60 years and quit about three years ago. Denies alcohol abuse but had been using alcohol significantly in the past. Denies any illicit recreational drug abuse. ALLERGIES: BENADRYL. MEDICATION LIST: According to the list provided, the patient was supposed to take Tylenol 1000 mg p.o. b.i.d. p.r.n. pain; aspirin 81 mg p.o. daily; B complex, vitamin B and C, and folic acid 1 p.o. daily' clotrimazole cream topically b.i.d.; hydrocodone 5/325 one p.o. q.4 hours p.r.n. pain; Isordil 30 mg p.o. daily; losartan 25 mg p.o. daily; Mevacor 20 mg p.o. at bedtime; metformin 1000 mg p.o. b.i.d.; Toprol-XL 25 mg p.o. daily, nitroglycerin sublingual 0.4 mg p.r.n. chest pain; Prilosec and Protonix both listed in the home medication list once a day; potassium KCl 20 mEq p.o. daily; Mysoline 50 mg p.o. at bedtime; listed Rythmol 150 mg p.o. b.i.d.; Zoloft 25 mg p.o. daily; Demadex mg p.o. daily; Ultram 100 mg p.o. t.i.d. p.r.n. headache; and listed trazodone 25 mg p.o. at bedtime p.r.n. sleep. REVIEW OF SYSTEMS: As per H and P, otherwise negative in all review of systems. Please note, the comprehensive review of systems obtained and pertinent positives were included in the H and P. PHYSICAL EXAMINATION: GENERAL: Pleasant, cooperative, and in no particular acute distress. VITAL SIGNS: Upon arrival on our floor, blood pressure 101/64, pulse 99, respiratory rate 18, temperature 97.6, oxygen saturation 98% on 2 L by nasal cannula. HEENT: With bilateral cataracts. Extraocular movements intact. Throat, mild erythema. No exudate. NECK: Supple. No JVD. No bruits. No thyromegaly. No lymph nodes. LUNGS: Bilateral air entry with few bibasilar crackles and few scattered wheezes. Good History And Physical [address] [address] NAME: LEIDY NASH : 42 STATUS : ADM IN [facility] WITH [facility]#: [id number] AGE: 76 ADM/REG DATE : 04/05/17 MR#: [id number] REPORT SERV DATE: 04/05/17 DICTATED BY: DONNA DUNNE DATE: 04/05/17 REPORT STATUS : Draft TRANSCRIBED BY: MODL DATE: 04/05/17 airway movement overall. HEART: Positive S1, S2. Irregularly irregular. Positive mitral regurgitation. Murmur at the apex. No rub. No gallop noticed. PMI not displaced by palpation. ABDOMEN: Positive bowel sounds. Soft, nontender. No guarding. No hepatosplenomegaly. EXTREMITIES: Decreased range of motion. Osteoarthritic changes. No clubbing. No cyanosis. No edema. Positive muscle wasting. No calf tenderness, +1 pulses bilateral. NEUROLOGIC: Alert and oriented x3. Grossly nonfocal. Flat affect and depressed mood with cooperative and pleasant. Cranial nerves II through XII grossly intact. Motor strength 4/5 to 5/5 symmetrical bilateral. Deep tendon reflexes 2/2 symmetrical bilateral. BACK: With decreased range of motion. No focal localized tenderness. No CVA tenderness. SKIN: No bruises. No rashes. No lacerations. SIGNIFICANT LABORATORY DATA: No laboratory data available as patient is a direct admission from infectious Disease office. Review of prior medical records showed blood cultures from 04/04/2017 showing 2/2 positive blood cultures for likely MRSA. ASSESSMENT AND PLAN AND PROBLEM LIST: 1. The patient is a pleasant 76-year-old black man with recent episode of the MRSA bacteremia due to endocarditis of the mitral valve, treated until 03/03/2017 with daptomycin with recurrent/persistent bacteremia. For all the above, the patient has been readmitted on the Hospitalist Service under telemetry setting. We are going to repeat blood cultures. We are going to restart daptomycin as suggested by the Infectious Disease consult every day as scheduled with adjustment for his recently improved urinary function and renal function. We are going to obtain a 2D echo and consider repeat YEN as per Cardiology consult, and as per ID consult, restart all other medication, trying to clarify exactly what patient was supposed to be taking this . 2. Cardiovascular:. a. MRSA mitral valve endocarditis. As per Infectious Disease and Cardiology, patient would be a very poor candidate for mitral valve surgery. b. Recent non-STEMI in 12/2016 with known coronary artery disease. We are going to repeat CK and troponin I, and if possible, going to continue aspirin and continue beta karissa. c. Atrial fibrillation, chronic, we are going to monitor EKG for now. Monitor CK and troponin I. continue beta karissa/Toprol XL. Check with patient's Cardiology. The patient was supposed to restart Rythmol, it seems the patient has been started to take it again. d. Pericarditis, recently, we are going to repeat 2D echo and evaluate. e. Hypertension, essential, as above, use IV hydralazine p.r.n. for increased blood pressure. f. edema, recently, presently, clinically stable. 3. Chronic kidney disease, stage 3 to stage 4. Apparently, improved as per outpatient testing, reported to the Hospitalist Service, still not available to us. We are going to obtain stat laboratory testing including urinalysis. Continue to monitor. Continue to avoid nephrotoxic agents and hypertension. 4. Endocrinologic problem:. a. Diabetes type 2, not insulin dependent, back on metformin. We are going History And Physical [id number] [place] [address] [place]. [address] NAME: LEIDY NASH : 44 STATUS : ADM IN PAT#: [id number] AGE: 76 ADM/REG DATE : 04/05/17 MR#: [id number] REPORT SERV DATE: 04/05/17 DICTATED BY: DONNA DUNNE DATE: 04/05/17 REPORT STATUS : Draft TRANSCRIBED BY: MODL DATE: 04/05/17 to use Levemir/long-acting insulin and sliding scale. Hold metformin for now and consider different class of oral medications if needed at the time of discharge. b. Hyperlipidemia, mixed type, provide dietary changes, provide low- cholesterol diet, we are going to continue for now. 5. Anemia, likely of chronic disease, with recent episode of GI bleed. Continue to monitor H and H, . 6. Chronic obstructive pulmonary disease, with chronic oxygen supplementation, continue oxygen supplementation, bronchodilator therapy. Check a chest x-ray. 7. Malnutrition, protein and calorie, present on admission, likely moderate with anorexia, restart smaller dose of Marinol as per discharge summary, encourage p.o. intake and consider mergers and acquisitions consultant consult. 8. Gastroesophageal reflux disease without esophagitis with history GI bleed. Use PPI with Protonix 40 mg p.o. daily. 9. Osteoarthritis, osteoporosis, deconditioning, and debilitation. 10.Depression and anxiety, provide emotional support. Continue medications. PROGNOSIS: Moderately good for this admission, but rather poor in medium and long-term. Discussed with the patient. Questions were answered in full. Please note, the patient is a full code at this moment as discussed with the patient at bedside. RF/CHRISTIANO Donna Dunne M.D. / [id number] CC: MD Khurram Viramontes M.D. Hal Hill, M.D. Theodore Richards, M.D. Rohit Gupta, M.D. Frank B. Wright, M.D.
--- NOTE | ~2017-04-05 | CN ---
Consultation Report [facility] [address] [place]. [address] NAME: LEIDY NASH : 44 STATUS : ADM IN PAT#: [id number] AGE: 76 ADM/REG DATE : 04/05/17 MR#: [id number] REPORT SERV DATE: 04/06/17 DICTATED BY: CATHERINE NICHOLE DATE: 04/06/17 REPORT STATUS : Draft TRANSCRIBED BY: MODL DATE: 04/06/17 INFECTIOUS DISEASE CONSULTATION DATE OF CONSULTATION: 04/06/2017 HISTORY OF PRESENT ILLNESS: This is a 76-year-old man, well known to me from his last admission at [facility] from 01/19/2017 through 02/08/2017, and from outpatient followup since then. During that admission, he had MRSA bacteremia, secondary to mitral valve endocarditis, which was demonstrated on a transesophageal echo. His hospital course was notable for diagnosis of myocardial infarction on admission, for which he underwent cardiac cath, which was essentially negative, raising suspicion on my part for possible embolic event from his mitral valve endocarditis to his coronary arteries. He developed acute kidney injury on top of his chronic kidney disease. The etiology of this was not entirely clear, but there was a fair amount of suspicion it may have been secondary to vancomycin. For this reason most of his course of antibiotic therapy was with daptomycin. At discharge on 02/08/2017, he went to [facility] to continue antibiotic therapy through approximately 03/03/2017, at a dose of 6 mg/kg IV every 48 hours. Toward the end of his stay at [facility], his renal function did improve such that his creatinine clearance was probably above 40. I find in followup at the end of his course of treatment, he looked very well and much improved. I find again in followup in the office two days ago. Again, he was generally feeling well, with his only complaint being persistent anterior upper chest pain, which he has had now since his last admission, and which was evaluated during his last inpatient stay without a clear etiology. I went ahead and had surveillance of blood cultures done after his clinic visit and those came back positive both sets yesterday for presumptive MRSA. We therefore arranged for him to come back into the hospital and he was admitted yesterday evening. Blood cultures were repeated and we started him on daptomycin at 8 mg/kg daily. The patient this morning says he feels very well. He denies any of the chest pain that he told me about two days ago. He denies any fevers, chills, night sweats, cough, back pain, shortness of breath, nausea, vomiting, or diarrhea. PAST MEDICAL HISTORY: Unchanged from the previous consultation and as noted above, and most notable for the chronic kidney disease, hypertension, diabetes, hyperlipidemia, gastroesophageal reflux, and atrial fibrillation. ALLERGIES: NO KNOWN DRUG ALLERGIES. HE DOES NOT TOLERATE BENADRYL. OUTPATIENT MEDICATIONS: Aspirin, vitamin B complex, p.r.n. hydrocodone, Isordil, losartan, lovastatin, metformin, metoprolol, omeprazole, and/or Protonix, potassium chloride, primidone, propafenone, Zoloft, torsemide, tramadol p.r.n., and trazodone. SOCIAL HISTORY: He quit smoking in and also quit drinking at that time. He lives alone. FAMILY HISTORY: Unremarkable. Consultation Report [address] [address] NAME: LEIDY NASH : 44 STATUS : ADM IN [facility]#: [id number] AGE: 76 ADM/REG DATE : 04/05/17 MR#: [id number] REPORT SERV DATE: 04/06/17 DICTATED BY: CATHERINE NICHOLE DATE: 04/06/17 REPORT STATUS : Draft TRANSCRIBED BY: CHRISTIANO DATE: 04/06/17 REVIEW OF SYSTEMS: As outlined above. Otherwise negative. PHYSICAL EXAMINATION: VITAL SIGNS: The patient weighs 78 kg. He is afebrile since admission. Blood pressure 117/80, pulse 99, and respiratory rate 14. GENERAL: He is alert, pleasant, in no acute distress. HEAD AND NECK: Conjunctivae without petechiae. The oral cavity is clear. Neck is supple. No adenopathy. LUNGS: Clear to auscultation. CARDIAC: Irregular rhythm. Normal S1 and S2. No murmur, gallop, or rub. ABDOMEN: Soft, nontender. Bowel sounds are present. No masses. EXTREMITIES: No edema. No stigmata of endocarditis. NEUROLOGIC: Exam is grossly intact. LABORATORY STUDIES: White blood cell count 7.8, hemoglobin 9.5, platelets 431, creatinine 1.51, it was. 1.76 yesterday. CRP 164. Sedimentation rate 104. Liver function tests normal. Microbiology studies as outlined above. Chest x-ray shows no acute findings. I would note that on his last admission, the patient had a CT scan of his chest without IV contrast on 01/20/2017, which showed a rounded incompletely circumscribed nodular infiltrate in the right lower lobe measuring 2 x 1.8 cm, it was felt to be indeterminate with recommendation of followup CT scan in three months. He also does have moderate severity emphysema. 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 The chief concern here obviously is that he has persistent endocarditis. I do not see a likely other source of the positive blood cultures. Some concern here that with his improvement in his renal function toward the end of his course of antibiotic therapy that ended in early February the q.48 hour dosing of the daptomycin during that period may have been inadequate. The patient has history of acute kidney injury which may have been secondary to vancomycin. Despite the recurrent bacteremia, he actually looks markedly improved compared to his last admission, and has no signs or symptoms of sepsis or of congestive heart failure, or major valvular dysfunction. Finally, he does have this abnormality on the CT scan from last admission of unclear etiology, which is not well visualized on the chest x-ray from yesterday. PLAN: 1. Await repeat blood cultures and final identification sensitivity of the isolate. We will also request ceftaroline sensitivity. 2. Await transthoracic echocardiogram results. He may need a repeat YEN. 3. We will treat with daptomycin at a dose of 8 mg/kg daily for now. 4. I anticipate another long course of IV antibiotics. I would not pursue valve replacement unless he has persistent bacteremia despite treatment or major valvular Consultation Report [facility] [address] [place]. [address] NAME: LEIDY NASH : 44 STATUS : ADM IN [facility]#: [id number] AGE: 76 ADM/REG DATE : 04/05/17 MR#: [id number] REPORT SERV DATE: 04/06/17 DICTATED BY: CATHERINE NICHOLE DATE: 04/06/17 REPORT STATUS : Draft TRANSCRIBED BY: MODL DATE: 04/06/17 dysfunction, or unless he fails a prolonged course of therapy again. 5. Consider followup CT scan of the chest. HH/CHRISTIANO Catherine Nichole M.D. / [id number] CC: MD REYNA Viramontes AMANDA M Theodore Richards, M.D.
--- NOTE | ~2017-04-05 | DS ---
Discharge Summary [facility] [id number] [place]. [address] NAME: LEIDY NASH : 42 STATUS : DIS IN PAT#: [id number] AGE: 76 ADM/REG DATE : 04/05/17 MR#: [id number] REPORT SERV DATE: 04/20/17 DICTATED BY: LORETTA MARTIN DATE: 04/19/17 REPORT STATUS : Draft TRANSCRIBED BY: MODShabbir DATE: 04/19/17 ADMISSION DATE: 04/05/2017 DISCHARGE DATE: 04/19/2017 DIAGNOSES: 1. 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 2. Chronic kidney disease, stage 3. 3. Chronic atrial fibrillation. 4. Type 2 diabetes. 5. Hypertension. 6. Chronic obstructive pulmonary disease. FOLLOWUP: The patient is to follow up with Dr. Saurabh Nichole, Infectious Disease and to follow up with Cardiology, Dr. Karley Ambrocio in three to four weeks and follow up with the primary care physician in one to two weeks. Also, the patient is to continue to follow up with primary care physician for abnormal pulmonary nodule, which apparently is chronic. CONSULTANTS: Karley Ambrocio M.D. of Cardiology and Infectious Disease, Saurabh Nichole M.D. HOSPITALIST: 1. Donna Novoa M.D. 2. Paco Augustin MD. 3. Luther Peraza II, MD. 4. Loretta Martin M.D. DISCHARGE MEDICATIONS: Aspirin 81 mg p.o. daily, Lotrimin cream topically b.i.d., Isordil 30 mg p.o. daily, Mevacor 20 mg p.o. q.h.s., Nephrocaps 1 cap p.o. daily, Protonix 40 mg p.o. q.a.m., primidone 50 mg p.o. q.h.s., Xarelto 20 mg p.o. every supper, Zoloft 25 mg p.o. daily, sotalol 80 mg p.o. b.i.d., Spiriva one cap inhaled daily, Demadex 10 mg p.o. daily, metformin 1000 mg p.o. b.i.d., daptomycin 600 mg IV daily, home dose of [place] 5/325 one tab p.o. q.6 hours p.r.n., nitroglycerin sublingual p.r.n. HOSPITAL COURSE: Please see H and P dictated by Dr. Donna Novoa and interim summary from Dr. Augustin and also Tiera Do, nurse practitioner and Luther Peraza MD. This is a 76-year-old male with a past medical history of coronary artery disease, type 2 diabetes, atrial fibrillation, and a recent history of [id number] DC in December 2016, with a stent placement and a recent diagnosis of mitral valve, MRSA endocarditis for which the patient was recently discharged from the hospital in January 2017, and discharged to [place] [facility] facility for which at that time, the patient completed his IV antibiotic course. The patient has been following up with his primary care physician and specialists as an outpatient. He was seen in Dr. Saurabh Nichole's clinic for which the patient had repeat blood cultures drawn, which once again grew out MRSA and the patient was directly admitted into the hospital to the hospitalist service, and the patient was continued on IV antibiotics. He did experience some atrial fibrillation with RVR for which the patient was Discharge Summary [address] [address] NAME: LEIDY NASH : 42 STATUS : DIS IN PAT#: [id number] AGE: 76 ADM/REG DATE : 04/05/17 MR#: [id number] REPORT SERV DATE: 04/20/17 DICTATED BY: LORETTA MARTIN DATE: 04/19/17 REPORT STATUS : Draft TRANSCRIBED BY: CHRISTIANO DATE: 04/19/17 seen by Cardiology. He was placed on Xarelto. Also his metoprolol was discontinued. He was placed on sotalol at 80 mg p.o. b.i.d. by Cardiology for rate control for which the patient remained rate controlled. The patient had a repeat YEN during this hospital stay by Dr. Villalta on 04/11/2017, and a repeat YEN showed no evidence of recurrent endocarditis, however, the patient was continued on IV antibiotics by Infectious Disease specialist, Dr. Saurabh Nichole and for completion of IV antibiotic with daptomycin through 05/22/2017, for completion of course. Also the patient remained in the hospital for disposition of the [place] [facility] [place], however, the patient's functional capacity improved to the point where the patient did not qualify for SNF. Therefore, had to be discharged to home with IV antibiotics per Infectious Disease specialist, preferred for the patient to come to an infusion center for his IV antibiotics, therefore, the patient will come to the infusion center at [facility] for daily IV antibiotics. The patient understands the importance of following up and not missing a dose. Also case management set this up as well as set up transportation back and forth from his infusions. Please refer to H and P and interim summaries by previous providers for further details. The patient was discharged to home and will continue with home health as well and daily IV infusions as an outpatient through 05/22/2017, he is clinically stable for discharge. This discharge required greater than [address] Saurabh Nichole will follow up with the patient as an outpatient. The patient also informed if he develops any severe muscle spasms or severe muscle aches to inform physician immediately for which at that time CPK level will be checked while on daptomycin. The patient's repeat blood cultures on 04/11/2017, were no growth to date. Although previous blood cultures were positive, his last blood cultures were no growth to date. DICTATED BY: Tashi Alvarado/CHRISTIANO Loretta Martin M.D. / [id number] CC: Tashi Alvarado MD Hal Hill, M.D. Dannis Hood Jr., M.D.
--- NOTE | ~2017-04-05 | ECH ---
Echocardiogram [facility] [place] [address] [place]. [address] NAME: LEIDY NASH : 42 STATUS : ADM IN [facility]#: [id number] AGE: 76 ADM/REG DATE : 04/05/17 MR#: [id number] REPORT SERV DATE: 04/06/17 DICTATED BY: MEGAN AMBROCIO JR. DATE: 04/06/17 REPORT STATUS : Draft TRANSCRIBED BY: MODL DATE: 04/06/17 REFERRING PHYSICIANS: Dr. Donna Novoa, and Dr. Swann. This is a transthoracic echo. INDICATIONS: History of prior endocarditis by transesophageal echo on 01/25, history of ablation, persistent MRSA. TECH: Arti Sibley is the CS. 2-D INTERPRETATION: M-mode and 2-dimensional echocardiography were performed. Definity contrast imaging agent was utilized to enhance endocardial borders. The left atrium was normal in size measuring 3.5 cm compared to an aortic root diameter of 3.4 cm. The left ventricle was normal in size measuring 4.2 cm in end-diastole and 3 cm in end-systole. Overall, there appeared to be normal left ventricular systolic function without regional wall motion abnormality with ejection fraction approximately 61%. The aortic valve was trileaflet, mildly sclerotic. The mitral valve appeared to be thickened along the anterior leaflet. The posterior leaflet was not well identified. The tricuspid valve appeared to be structurally normal. The pulmonic valve was not well visualized. No obvious pericardial or pleural effusion could be seen. No intracardiac mass could be identified. An anterior fat pad is suggested. There is a plaque noted in the descending aorta. No other finding is noted on aortic views. DOPPLER/COLOR FLOW: Conventional and Doppler color flow imaging were performed. On pulse wave Doppler across the mitral valve, mitral inflow patterns suggested normal diastolic function for the patient's age. There was eccentric jet of [id number] mitral insufficiency. There was no significant tricuspid insufficiency. Peak gradient across the aortic valve measured 8 mmHg. There was no aortic insufficiency. Pulmonic insufficiency was not noted. CONCLUSION: TECHNICALLY DIFFICULT STUDY WITH LUNG INTERFERENCE WELL INTERFERENCE WITH THE CHEST WALL WITH DEFINITY CONTRAST IMAGING AGENT UTILIZED. NORMAL LEFT VENTRICULAR SYSTOLIC FUNCTION. NORMAL DIASTOLIC FUNCTION FOR THE PATIENT'S AGE. POSSIBLE AORTIC VALVE SCLEROSIS. THICKENING OF THE ANTERIOR LEAFLET OF THE MITRAL VALVE. NO SIGNIFICANT TRICUSPID INSUFFICIENCY. [id number] MITRAL INSUFFICIENCY. NO AORTIC INSUFFICIENCY. NO PULMONIC INSUFFICIENCY. NO EVIDENCE OF PULMONARY HYPERTENSION. NO EVIDENCE OF PERICARDIAL OR PLEURAL EFFUSION. ANTERIOR FAT PAD IS SUGGESTED. MAE/CHRISTIANO Megan Ambrocio Jr., M.D. / [id number] [address] [address] NAME: LEIDY NASH : 42 STATUS : ADM IN PAT#: [id number] AGE: 76 ADM/REG DATE : 04/05/17 MR#: [id number] REPORT SERV DATE: 04/06/17 DICTATED BY: MEGAN AMBROCIO JR. DATE: 04/06/17 REPORT STATUS : Draft TRANSCRIBED BY: CHRISTIANO DATE: 04/06/17 CC: MD Sheila Viramontes
--- NOTE | ~2017-04-05 | IDS ---
Interim Discharge Summary [facility] [address] [place]. [address] NAME: LEIDY NASH : 42 STATUS : ADM IN [facility]#: [id number] AGE: 76 ADM/REG DATE : 04/05/17 MR#: [id number] REPORT SERV DATE: 04/11/17 DICTATED BY: PACO SALES DATE: 04/10/17 REPORT STATUS : Draft TRANSCRIBED BY: CHRISTIANO DATE: 04/10/17 ADMISSION DATE: 04/05/2017 DISCHARGE DATE: DATE OF DISCHARGE: Pending. CONSULTATIONS: 1. Cardiology, Dr. Karley Ambrocio. 2. Infectious Disease, Dr. Kane Nichole. CURRENT DIAGNOSES: 1. 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 2. 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 3. Chronic atrial fibrillation. 4. Acute kidney injury on chronic kidney disease stage 3. 5. Hypertension. 6. Diabetes mellitus. 7. Normocytic anemia without evidence of acute blood loss. 8. Chronic obstructive pulmonary disease with chronic oxygen supplementation. 9. Gastroesophageal reflux disease. 10.Osteoarthritis. 11.Prior history of pericarditis. 12.History of major depression. 13.History of severe malnutrition. CURRENT CONDITION: Stable. HISTORY OF PRESENT ILLNESS: For detailed HPI, make reference to Dr. Donna Novoa's dictation on 04/05/2017. In brief, this is a 76-year-old male, who was admitted from Dr. Nichole's (Infectious Disease) office with persistent bacteremia MRSA bacteremia. The patient is well known to Dr. Nichole in previous admissions. He was found to have MRSA bacteremia and mitral valve endocarditis in the last admission. Was subsequently discharged to custodial to continue IV vancomycin at [facility] [place]. However, the patient was noted to have significant improvement in his renal function. Was found to have likely a vanc trough level that was subtherapeutic. At his followup in Dr. Nichole's office, was found to have persistent MRSA bacteremia, hence was admitted to the hospital for further antibiotic therapy. HOSPITAL COURSE: 1. MRSA bacteremia. The patient's IV vancomycin was discontinued. The patient was placed on IV daptomycin. Repeat blood cultures were obtained. However, the patient continued to have persistent MRSA bacteremia. The patient is scheduled to have a YEN tomorrow for further recommendation. Cardiology is on board. Infectious Disease is on board. The patient is presently stable. 2. Chronic atrial fibrillation without RVR. The patient's rate was controlled. The patient is not on any chronic anticoagulation due to prior history of GI bleeds. Interim Discharge Summary [address] [address] NAME: LEIDY NASH : 42 STATUS : ADM IN PAT#: [id number] AGE: 76 ADM/REG DATE : 04/05/17 MR#: [id number] REPORT SERV DATE: 04/11/17 DICTATED BY: PACO SALES DATE: 04/10/17 REPORT STATUS : Draft TRANSCRIBED BY: MODL DATE: 04/10/17 3. Acute kidney injury on chronic kidney disease. The patient's creatinine continued to improve throughout the course of this admission. On presentation, was noted to be 1.9, currently at 1.29, and has remained stable. CURRENT CONDITION: Stable. FOLLOWUP: Follow up with YEN in the morning. Further recommendation by Cardiology and Infectious Disease. ASHLEYO/MODL Paco Sales MD / [id number] CC: MD DANIELLE Viramontes
--- NOTE | ~2017-04-05 | IDS ---
Interim Discharge Summary [facility] [address] [place]. [address] NAME: LEIDY NASH : 42 STATUS : ADM IN PAT#: [id number] AGE: 76 ADM/REG DATE : 04/05/17 MR#: [id number] REPORT SERV DATE: 04/18/17 DICTATED BY: DATE: REPORT STATUS : Draft TRANSCRIBED BY: MODL DATE: 04/17/17 ADMISSION DATE: 04/05/2017 DISCHARGE DATE: Discharge date [facility] Interim discharge summary covers dates of service between 04/11/2017 and 04/17/2017. CONSULTATIONS: 1. Saurabh Nichole, Infectious Disease, 04/06/2017. 2. Karley Ambrocio, Cardiology, 04/06/2017. INTERIM DIAGNOSES: 1. Methicillin-resistant Staphylococcus aureus bacteremia, recurrent. 2. Mitral valve methicillin-resistant Staphylococcus aureus endocarditis. 3. Chronic kidney disease, stage 3. 4. Chronic atrial fibrillation. 5. Type [address] of chest history. 7. Hypertension. HOSPITAL COURSE: 1. MRSA bacteremia, recurrent. The patient has been managed under the care of Infectious Disease. YEN negative, although may be false. Negative result. Additional workup to exclude additional sources of infection. MRI of spine negative. CT of abdomen and pelvis negative. Repeat blood cultures negative. The patient will continue IV daptomycin through 05/22/2017 per Infectious Disease recommendations. 2. Mitral valve MRSA endocarditis. The patient has history of endocarditis from 01/20/2017 which resulted in extended hospital stay. The patient was discharged 02/09/2017. 3. Chronic kidney disease, stage 3. The patient's creatinine is stable and at baseline, reported to be 1.23 today. 4. Chronic atrial fibrillation. At this time, the patient is in regular rhythm with rate controlled. The patient discontinued his Xarelto awhile back secondary to hemoptysis. Cardiology re-evaluated the patient during this admission and restarted the patient on Xarelto 20 mg p.o. daily. Also made medication adjustment to include discontinuing propafenone and starting sotalol. The patient has responded well to this therapy. The patient was instructed on the importance of continuing Xarelto upon discharge. 5. Type 2 diabetes. The patient's blood glucose is stable. Home dose of metformin was added back on 04/15/2017. Continue sliding scale insulin. 6. Abnormal CT of chest on 01/20/2017. CT of chest showed nodular infiltrate in right lower lobe 2 x 1.8 cm. The patient states he is aware of this finding, and PC is following on an outpatient basis. The patient underwent abdominal CT during this admission which caught the bases of the lung. Nodule appeared to be decreasing in size. The patient is to follow up with primary care after discharge from [facility] for consideration of repeat chest CT. Interim Discharge Summary [address] [address] NAME: LEIDY NASH : 42 STATUS : ADM IN [facility]#: [id number] AGE: 76 ADM/REG DATE : 04/05/17 MR#: [id number] REPORT SERV DATE: 04/18/17 DICTATED BY: DATE: REPORT STATUS : Draft TRANSCRIBED BY: MODL DATE: 04/17/17 7. Hypertension. The patient's blood pressure is stable. Add back home dose of Cozaar upon discharge if creatinine remains stable. DISPOSITION: Complicated discharge secondary to poor social support at home to assist with daily IV antibiotic therapy which is to continue through 05/22/2017. The patient has been approved for [facility] facility awaiting bed availability. PERLA/CHRISTIANO Tiera Do NP-C / [id number] CC: MD Sheila Shelby II
[~2017-04-05 18:34] MED LIST: COZ25 PO; GLUCOPHAGE1000 MG PO; HALF81 PO; HCTZ12.5 PO; ISOSORB DIN30 MG PO; KLOR-CON M2020 MEQ PO; MEVACOR PO; PRILO PO; PRIM50B PO; PROAIR HFA INH; RYTHMOL150 MG PO; TOPXL25 PO; ULTRAM50 PO
[2017-04-05] MEDS ORDERED: PRILO PO (19:29)
[2017-04-05] MEDS ORDERED: GLUCOPHAGE1000 MG PO (19:29)
[2017-04-05] MEDS ORDERED: ZOLOFT25 MG PO (19:30)
[2017-04-05] MEDS ORDERED: NORCO1 TA1 PO (19:31)
[2017-04-05] MEDS ORDERED: KLOR-CON M2020 MEQ PO (19:32)
[2017-04-05] MEDS ORDERED: PRIM50B PO (19:32)
[2017-04-05] MEDS ORDERED: RENA-VITE PO (19:33)
[2017-04-05] MEDS ORDERED: ISOSORB DIN30 MG PO (19:33)
[2017-04-05] MEDS ORDERED: DEMA20 PO (19:33)
[2017-04-05] MEDS ORDERED: TRAZ50 PO (19:34)
[2017-04-05] MEDS ORDERED: COZ25 PO (19:35)
[2017-04-05] MEDS ORDERED: PROTONIX PO (19:36)
[2017-04-05] MEDS ORDERED: TOPXL25 PO (19:37)
[2017-04-05] MEDS ORDERED: ULTRAM50 PO (19:37)
[2017-04-05] MEDS ORDERED: NITROSTAT0.4 MG SL (19:38)
[2017-04-05] MEDS ORDERED: RYTHMOL150 MG PO (19:39)
[2017-04-05] MEDS ORDERED: MEVACOR PO (19:40)
[2017-04-05] MEDS ORDERED: HALF81 PO (19:40)
[2017-04-05] MEDS ORDERED: ACET500CAP PO (19:41)
[2017-04-05] MEDS ORDERED: LOTRIMIN-MYCELE15 GM TOP (19:46)
[2017-04-05 21:17] LABS: BASOPHILS 0.2 %; BASOPHILS ABSOLUTE 0.02 10/3/uL (0.0-0.16); EOSINOPHILS 1.8 %; EOSINOPHILS ABSOLUTE 0.16 10/3/uL (0.0-0.53); HEMATOCRIT 30.1 % (40.0-51.0); HEMOGLOBIN 9.7 g/dL (13.6-17.8); IMMATURE GRANULOCYTES 0.3 %; IMMATURE GRANULOCYTES ABSOLUTE 0.03 10/3/uL (0.0-0.11); LYMPHOCYTES 19.6 %; LYMPHOCYTES ABSOLUTE 1.77 10/3/uL (0.67-4.30); MEAN CORPUSCULAR HEMOGLOB 26.8 pg (26.0-34.0); MEAN CORPUSCULAR VOLUME 83.1 fL (80-100); MONOCYTES 8.3 %; MONOCYTES ABSOLUTE 0.75 10/3/uL (0.21-1.20); NEUTROPHILS 69.8 %; NEUTROPHILS ABSOLUTE 6.29 10/3/uL (2.02-8.40); RBC DISTRIBUTION WIDTH 21.9 % (12.0-16.0); RED CELL COUNT 3.62 10/6/uL (4.7-6.1)
[2017-04-05 21:21] LABS: MANUAL DIFF NO %; MEAN CORPUS HGB CONC 32.2 g/dL (32.0-36.0); PLATELET COUNT 492 10/3/uL (150-400)
[2017-04-05 21:37] LABS: CALCIUM, SERUM 8.9 MG/DL (8.5-10.4); CHLORIDE, SERUM 106 MMOL/L (96-112); CO2 (CARBON DIOXIDE) 28 MMOL/L (24-34); CREATININE 1.76 MG/DL (0.70-1.30); GFR AFRICAN AMERICAN 43 ML/MIN (>=60); GFR NON AFRICAN AMERICAN 37 ML/MIN (>=60); GLUCOSE, SERUM 135 MG/DL (60-99); POTASSIUM, SERUM 3.5 MMOL/L (3.5-5.3); SGOT(AST) 14 U/L (5-40); SGPT(ALT) 17 U/L (5-65); TOTAL BILIRUBIN 0.3 MG/DL (0-1.2); TOTAL PROTEIN 8.9 G/DL (6.0-8.5); TROPONIN I 0.03 NG/ML (<0.05)
[2017-04-05 21:38] LABS: A/G RATIO 0.5 (0.7-1.9); ALBUMIN 2.8 G/DL (3.5-5.0); ALKALINE PHOSPHATASE 92 U/L (45-117); BUN (BLOOD UREA NITROGEN) 28 MG/DL (6-23); CK-MB < 0.5 NG/ML; CPK 21 U/L (0-200); GLOBULIN 6.1 G/DL (2.5-4.1); SODIUM, SERUM 129 MMOL/L (135-148)
[2017-04-05 22:03] LABS: PROCALCITONIN 0.69 ng/mL (<0.5)
[2017-04-05 22:27] LABS: SED RATE 104 MM/HR (0-15)
[2017-04-06 04:44] LABS: BASOPHILS 0.3 %; BASOPHILS ABSOLUTE 0.02 10/3/uL (0.0-0.16); EOSINOPHILS ABSOLUTE 0.23 10/3/uL (0.0-0.53); HEMATOCRIT 29.7 % (40.0-51.0); HEMOGLOBIN 9.5 g/dL (13.6-17.8); IMMATURE GRANULOCYTES 0.3 %; IMMATURE GRANULOCYTES ABSOLUTE 0.02 10/3/uL (0.0-0.11); LYMPHOCYTES 30.2 %; LYMPHOCYTES ABSOLUTE 2.35 10/3/uL (0.67-4.30); MEAN CORPUSCULAR HEMOGLOB 26.8 pg (26.0-34.0); MEAN CORPUSCULAR VOLUME 83.7 fL (80-100); MEAN PLATELET VOLUME 8.7 fL (9.2-13.0); MONOCYTES 9.5 %; MONOCYTES ABSOLUTE 0.74 10/3/uL (0.21-1.20); NEUTROPHILS 56.7 %; NEUTROPHILS ABSOLUTE 4.41 10/3/uL (2.02-8.40); PLATELET COUNT 431 10/3/uL (150-400); RED CELL COUNT 3.55 10/6/uL (4.7-6.1); WHITE BLOOD CELLS 7.8 10/3/uL (4.5-10.5)
[2017-04-06 04:47] LABS: MANUAL DIFF NO %
[2017-04-06 05:03] LABS: ALBUMIN 2.6 G/DL (3.5-5.0); BUN (BLOOD UREA NITROGEN) 30 MG/DL (6-23); CALCIUM, SERUM 8.7 MG/DL (8.5-10.4); CHLORIDE, SERUM 105 MMOL/L (96-112); CO2 (CARBON DIOXIDE) 28 MMOL/L (24-34); CPK 19 U/L (0-200); CREATININE 1.51 MG/DL (0.70-1.30); GFR AFRICAN AMERICAN 52 ML/MIN (>=60); GFR NON AFRICAN AMERICAN 45 ML/MIN (>=60); GLUCOSE, SERUM 126 MG/DL (60-99); PHOSPHORUS, SERUM 3.3 MG/DL (2.5-4.5); POTASSIUM, SERUM 3.7 MMOL/L (3.5-5.3); TROPONIN I <0.02 NG/ML (<0.05)
[2017-04-06 05:07] LABS: CK-MB < 0.5 NG/ML; SODIUM, SERUM 137 MMOL/L (135-148)
[2017-04-06 14:29] LABS: ASCORBIC ACID (UR NOT ORDER) NEG (NEG); BILIRUBIN, URINE NEGATIVE (NEG); KETONE, URINE NEGATIVE (NEG); LEUKOCYTE ESTERASE(NOT OR NEG (NEG); WBC (NOT ORDERED) (RFLEX) 1 (0-5)
[2017-04-07 06:18] LABS: BASOPHILS 0.3 %; BASOPHILS ABSOLUTE 0.02 10/3/uL (0.0-0.16); EOSINOPHILS 5.2 %; EOSINOPHILS ABSOLUTE 0.38 10/3/uL (0.0-0.53); HEMATOCRIT 28.9 % (40.0-51.0); HEMOGLOBIN 9.1 g/dL (13.6-17.8); IMMATURE GRANULOCYTES 0.3 %; IMMATURE GRANULOCYTES ABSOLUTE 0.02 10/3/uL (0.0-0.11); LYMPHOCYTES 27.7 %; LYMPHOCYTES ABSOLUTE 2.04 10/3/uL (0.67-4.30); MEAN CORPUS HGB CONC 31.5 g/dL (32.0-36.0); MEAN CORPUSCULAR HEMOGLOB 26.2 pg (26.0-34.0); MEAN CORPUSCULAR VOLUME 83.3 fL (80-100); MEAN PLATELET VOLUME 8.9 fL (9.2-13.0); MONOCYTES 9.1 %; MONOCYTES ABSOLUTE 0.67 10/3/uL (0.21-1.20); NEUTROPHILS 57.4 %; NEUTROPHILS ABSOLUTE 4.24 10/3/uL (2.02-8.40); PLATELET COUNT 427 10/3/uL (150-400); RBC DISTRIBUTION WIDTH 21.6 % (12.0-16.0); RED CELL COUNT 3.47 10/6/uL (4.7-6.1); WHITE BLOOD CELLS 7.4 10/3/uL (4.5-10.5)
[2017-04-07 06:23] LABS: MANUAL DIFF NO %
[2017-04-07 06:35] LABS: CHLORIDE, SERUM 104 MMOL/L (96-112); CO2 (CARBON DIOXIDE) 26 MMOL/L (24-34); CREATININE 1.24 MG/DL (0.70-1.30); GFR AFRICAN AMERICAN 66 ML/MIN (>=60); GFR NON AFRICAN AMERICAN 57 ML/MIN (>=60); GLUCOSE, SERUM 115 MG/DL (60-99); PHOSPHORUS, SERUM 2.9 MG/DL (2.5-4.5); POTASSIUM, SERUM 3.8 MMOL/L (3.5-5.3); SODIUM, SERUM 139 MMOL/L (135-148)
[2017-04-07 06:36] LABS: BUN (BLOOD UREA NITROGEN) 22 MG/DL (6-23)
[2017-04-08 05:35] LABS: BUN (BLOOD UREA NITROGEN) 23 MG/DL (6-23); CALCIUM, SERUM 9.4 MG/DL (8.5-10.4); CHLORIDE, SERUM 104 MMOL/L (96-112); CO2 (CARBON DIOXIDE) 27 MMOL/L (24-34); CREATININE 1.18 MG/DL (0.70-1.30); GFR AFRICAN AMERICAN 70 ML/MIN (>=60); GFR NON AFRICAN AMERICAN 60 ML/MIN (>=60); GLUCOSE, SERUM 119 MG/DL (60-99); PHOSPHORUS, SERUM 3.6 MG/DL (2.5-4.5); POTASSIUM, SERUM 3.6 MMOL/L (3.5-5.3); SODIUM, SERUM 141 MMOL/L (135-148)
[2017-04-08 05:38] LABS: BASOPHILS 0.3 %; BASOPHILS ABSOLUTE 0.02 10/3/uL (0.0-0.16); EOSINOPHILS 6.9 %; EOSINOPHILS ABSOLUTE 0.46 10/3/uL (0.0-0.53); HEMATOCRIT 29.5 % (40.0-51.0); HEMOGLOBIN 9.5 g/dL (13.6-17.8); IMMATURE GRANULOCYTES 0.2 %; IMMATURE GRANULOCYTES ABSOLUTE 0.01 10/3/uL (0.0-0.11); LYMPHOCYTES 36.1 %; MEAN CORPUS HGB CONC 32.2 g/dL (32.0-36.0); MEAN CORPUSCULAR HEMOGLOB 26.5 pg (26.0-34.0); MEAN CORPUSCULAR VOLUME 82.2 fL (80-100); MEAN PLATELET VOLUME 9.1 fL (9.2-13.0); MONOCYTES 10.2 %; MONOCYTES ABSOLUTE 0.68 10/3/uL (0.21-1.20); NEUTROPHILS 46.3 %; NEUTROPHILS ABSOLUTE 3.07 10/3/uL (2.02-8.40); PLATELET COUNT 483 10/3/uL (150-400); RBC DISTRIBUTION WIDTH 21.4 % (12.0-16.0); RED CELL COUNT 3.59 10/6/uL (4.7-6.1); WHITE BLOOD CELLS 6.6 10/3/uL (4.5-10.5)
[2017-04-08 05:53] LABS: MANUAL DIFF NO %
[2017-04-09 06:18] LABS: BASOPHILS 0.3 %; BASOPHILS ABSOLUTE 0.02 10/3/uL (0.0-0.16); EOSINOPHILS 6.9 %; EOSINOPHILS ABSOLUTE 0.49 10/3/uL (0.0-0.53); HEMATOCRIT 30.1 % (40.0-51.0); HEMOGLOBIN 9.6 g/dL (13.6-17.8); IMMATURE GRANULOCYTES 0.1 %; IMMATURE GRANULOCYTES ABSOLUTE 0.01 10/3/uL (0.0-0.11); LYMPHOCYTES 36.9 %; LYMPHOCYTES ABSOLUTE 2.61 10/3/uL (0.67-4.30); MEAN CORPUS HGB CONC 31.9 g/dL (32.0-36.0); MEAN CORPUSCULAR VOLUME 81.6 fL (80-100); MEAN PLATELET VOLUME 9.2 fL (9.2-13.0); MONOCYTES 9.8 %; MONOCYTES ABSOLUTE 0.69 10/3/uL (0.21-1.20); NEUTROPHILS ABSOLUTE 3.25 10/3/uL (2.02-8.40); PLATELET COUNT 489 10/3/uL (150-400); RBC DISTRIBUTION WIDTH 21.1 % (12.0-16.0); RED CELL COUNT 3.69 10/6/uL (4.7-6.1); WHITE BLOOD CELLS 7.1 10/3/uL (4.5-10.5)
[2017-04-09 06:20] LABS: MANUAL DIFF NO %
[2017-04-09 06:29] LABS: ALBUMIN 2.5 G/DL (3.5-5.0); BUN (BLOOD UREA NITROGEN) 24 MG/DL (6-23); CALCIUM, SERUM 9.1 MG/DL (8.5-10.4); CHLORIDE, SERUM 105 MMOL/L (96-112); CO2 (CARBON DIOXIDE) 27 MMOL/L (24-34); CREATININE 1.15 MG/DL (0.70-1.30); GFR AFRICAN AMERICAN 72 ML/MIN (>=60); GFR NON AFRICAN AMERICAN 62 ML/MIN (>=60); GLUCOSE, SERUM 118 MG/DL (60-99); PHOSPHORUS, SERUM 3.2 MG/DL (2.5-4.5); POTASSIUM, SERUM 3.7 MMOL/L (3.5-5.3); SODIUM, SERUM 141 MMOL/L (135-148)
[2017-04-10 04:42] LABS: BASOPHILS 0.5 %; BASOPHILS ABSOLUTE 0.03 10/3/uL (0.0-0.16); EOSINOPHILS 8.3 %; EOSINOPHILS ABSOLUTE 0.54 10/3/uL (0.0-0.53); HEMATOCRIT 30.8 % (40.0-51.0); HEMOGLOBIN 9.6 g/dL (13.6-17.8); IMMATURE GRANULOCYTES 0.3 %; IMMATURE GRANULOCYTES ABSOLUTE 0.02 10/3/uL (0.0-0.11); LYMPHOCYTES 41.1 %; LYMPHOCYTES ABSOLUTE 2.67 10/3/uL (0.67-4.30); MEAN CORPUS HGB CONC 31.2 g/dL (32.0-36.0); MEAN CORPUSCULAR HEMOGLOB 25.9 pg (26.0-34.0); MEAN CORPUSCULAR VOLUME 83.2 fL (80-100); MEAN PLATELET VOLUME 9.1 fL (9.2-13.0); MONOCYTES 8.6 %; MONOCYTES ABSOLUTE 0.56 10/3/uL (0.21-1.20); NEUTROPHILS 41.2 %; NEUTROPHILS ABSOLUTE 2.67 10/3/uL (2.02-8.40); PLATELET COUNT 508 10/3/uL (150-400); RBC DISTRIBUTION WIDTH 21.3 % (12.0-16.0); WHITE BLOOD CELLS 6.5 10/3/uL (4.5-10.5)
[2017-04-10 04:57] LABS: MANUAL DIFF NO %
[2017-04-10 05:03] LABS: ALBUMIN 2.6 G/DL (3.5-5.0); BUN (BLOOD UREA NITROGEN) 24 MG/DL (6-23); CALCIUM, SERUM 9.1 MG/DL (8.5-10.4); CHLORIDE, SERUM 104 MMOL/L (96-112); CO2 (CARBON DIOXIDE) 29 MMOL/L (24-34); CREATININE 1.29 MG/DL (0.70-1.30); GFR AFRICAN AMERICAN 63 ML/MIN (>=60); GFR NON AFRICAN AMERICAN 54 ML/MIN (>=60); GLUCOSE, SERUM 122 MG/DL (60-99); PHOSPHORUS, SERUM 3.8 MG/DL (2.5-4.5); POTASSIUM, SERUM 3.9 MMOL/L (3.5-5.3); SODIUM, SERUM 139 MMOL/L (135-148)
[2017-04-11 02:11] LABS: BASOPHILS 0.5 %; BASOPHILS ABSOLUTE 0.03 10/3/uL (0.0-0.16); EOSINOPHILS 7.5 %; EOSINOPHILS ABSOLUTE 0.49 10/3/uL (0.0-0.53); HEMATOCRIT 30.6 % (40.0-51.0); HEMOGLOBIN 9.8 g/dL (13.6-17.8); IMMATURE GRANULOCYTES 0.3 %; IMMATURE GRANULOCYTES ABSOLUTE 0.02 10/3/uL (0.0-0.11); LYMPHOCYTES 43.5 %; LYMPHOCYTES ABSOLUTE 2.84 10/3/uL (0.67-4.30); MEAN CORPUSCULAR HEMOGLOB 26.6 pg (26.0-34.0); MEAN CORPUSCULAR VOLUME 83.2 fL (80-100); MEAN PLATELET VOLUME 9.3 fL (9.2-13.0); MONOCYTES 7.8 %; MONOCYTES ABSOLUTE 0.51 10/3/uL (0.21-1.20); NEUTROPHILS 40.4 %; NEUTROPHILS ABSOLUTE 2.64 10/3/uL (2.02-8.40); PLATELET COUNT 551 10/3/uL (150-400); RBC DISTRIBUTION WIDTH 21.3 % (12.0-16.0); RED CELL COUNT 3.68 10/6/uL (4.7-6.1); WHITE BLOOD CELLS 6.5 10/3/uL (4.5-10.5)
[2017-04-11 02:13] LABS: MANUAL DIFF NO %
[2017-04-11 02:14] LABS: ALBUMIN 2.6 G/DL (3.5-5.0); BUN (BLOOD UREA NITROGEN) 24 MG/DL (6-23); CALCIUM, SERUM 9.2 MG/DL (8.5-10.4); CHLORIDE, SERUM 104 MMOL/L (96-112); CO2 (CARBON DIOXIDE) 28 MMOL/L (24-34); GFR AFRICAN AMERICAN 62 ML/MIN (>=60); GFR NON AFRICAN AMERICAN 54 ML/MIN (>=60); GLUCOSE, SERUM 116 MG/DL (60-99); PHOSPHORUS, SERUM 4.2 MG/DL (2.5-4.5); POTASSIUM, SERUM 3.9 MMOL/L (3.5-5.3); SODIUM, SERUM 139 MMOL/L (135-148)
[2017-04-12 06:43] LABS: BASOPHILS 0.4 %; BASOPHILS ABSOLUTE 0.03 10/3/uL (0.0-0.16); EOSINOPHILS 7.5 %; EOSINOPHILS ABSOLUTE 0.55 10/3/uL (0.0-0.53); HEMATOCRIT 30.4 % (40.0-51.0); HEMOGLOBIN 9.6 g/dL (13.6-17.8); IMMATURE GRANULOCYTES 0.1 %; IMMATURE GRANULOCYTES ABSOLUTE 0.01 10/3/uL (0.0-0.11); LYMPHOCYTES 34.6 %; LYMPHOCYTES ABSOLUTE 2.54 10/3/uL (0.67-4.30); MEAN CORPUS HGB CONC 31.6 g/dL (32.0-36.0); MEAN CORPUSCULAR HEMOGLOB 26.6 pg (26.0-34.0); MEAN CORPUSCULAR VOLUME 84.2 fL (80-100); MONOCYTES 7.3 %; MONOCYTES ABSOLUTE 0.54 10/3/uL (0.21-1.20); NEUTROPHILS 50.1 %; NEUTROPHILS ABSOLUTE 3.68 10/3/uL (2.02-8.40); PLATELET COUNT 496 10/3/uL (150-400); RBC DISTRIBUTION WIDTH 21.2 % (12.0-16.0); RED CELL COUNT 3.61 10/6/uL (4.7-6.1); WHITE BLOOD CELLS 7.4 10/3/uL (4.5-10.5)
[2017-04-12 06:44] LABS: MANUAL DIFF NO %
[2017-04-12 06:55] LABS: CALCIUM, SERUM 9.3 MG/DL (8.5-10.4); CHLORIDE, SERUM 102 MMOL/L (96-112); CO2 (CARBON DIOXIDE) 27 MMOL/L (24-34); CREATININE 1.15 MG/DL (0.70-1.30); GFR AFRICAN AMERICAN 72 ML/MIN (>=60); GFR NON AFRICAN AMERICAN 62 ML/MIN (>=60); POTASSIUM, SERUM 3.9 MMOL/L (3.5-5.3); SODIUM, SERUM 137 MMOL/L (135-148)
[2017-04-12 06:56] LABS: BUN (BLOOD UREA NITROGEN) 20 MG/DL (6-23); GLUCOSE, SERUM 218 MG/DL (60-99)
[2017-04-13 02:44] LABS: BASOPHILS 0.2 %; BASOPHILS ABSOLUTE 0.02 10/3/uL (0.0-0.16); EOSINOPHILS 6.2 %; EOSINOPHILS ABSOLUTE 0.52 10/3/uL (0.0-0.53); HEMATOCRIT 30.9 % (40.0-51.0); HEMOGLOBIN 9.9 g/dL (13.6-17.8); IMMATURE GRANULOCYTES 0.2 %; IMMATURE GRANULOCYTES ABSOLUTE 0.02 10/3/uL (0.0-0.11); LYMPHOCYTES ABSOLUTE 2.36 10/3/uL (0.67-4.30); MANUAL DIFF NO %; MEAN CORPUSCULAR VOLUME 84.4 fL (80-100); MEAN PLATELET VOLUME 8.9 fL (9.2-13.0); MONOCYTES 5.9 %; NEUTROPHILS 59.5 %; NEUTROPHILS ABSOLUTE 5.02 10/3/uL (2.02-8.40); PLATELET COUNT 494 10/3/uL (150-400); RBC DISTRIBUTION WIDTH 21.3 % (12.0-16.0); RED CELL COUNT 3.66 10/6/uL (4.7-6.1); WHITE BLOOD CELLS 8.4 10/3/uL (4.5-10.5)
[2017-04-13 02:56] LABS: BUN (BLOOD UREA NITROGEN) 22 MG/DL (6-23); CALCIUM, SERUM 8.9 MG/DL (8.5-10.4); CHLORIDE, SERUM 106 MMOL/L (96-112); CO2 (CARBON DIOXIDE) 29 MMOL/L (24-34); CREATININE 1.18 MG/DL (0.70-1.30); GFR AFRICAN AMERICAN 70 ML/MIN (>=60); GFR NON AFRICAN AMERICAN 60 ML/MIN (>=60); GLUCOSE, SERUM 103 MG/DL (60-99); POTASSIUM, SERUM 4.2 MMOL/L (3.5-5.3); SODIUM, SERUM 141 MMOL/L (135-148)
[2017-04-14 06:25] LABS: BASOPHILS 0.4 %; BASOPHILS ABSOLUTE 0.03 10/3/uL (0.0-0.16); EOSINOPHILS 5.8 %; HEMATOCRIT 29.3 % (40.0-51.0); HEMOGLOBIN 9.3 g/dL (13.6-17.8); IMMATURE GRANULOCYTES 0.3 %; IMMATURE GRANULOCYTES ABSOLUTE 0.02 10/3/uL (0.0-0.11); LYMPHOCYTES 41.5 %; LYMPHOCYTES ABSOLUTE 2.85 10/3/uL (0.67-4.30); MEAN CORPUS HGB CONC 31.7 g/dL (32.0-36.0); MEAN CORPUSCULAR HEMOGLOB 26.7 pg (26.0-34.0); MEAN CORPUSCULAR VOLUME 84.2 fL (80-100); MEAN PLATELET VOLUME 8.9 fL (9.2-13.0); MONOCYTES 6.6 %; MONOCYTES ABSOLUTE 0.45 10/3/uL (0.21-1.20); NEUTROPHILS 45.4 %; NEUTROPHILS ABSOLUTE 3.12 10/3/uL (2.02-8.40); PLATELET COUNT 503 10/3/uL (150-400); RED CELL COUNT 3.48 10/6/uL (4.7-6.1); WHITE BLOOD CELLS 6.9 10/3/uL (4.5-10.5)
[2017-04-14 06:31] LABS: MANUAL DIFF NO %
[2017-04-14 06:39] LABS: BUN (BLOOD UREA NITROGEN) 25 MG/DL (6-23); CALCIUM, SERUM 8.7 MG/DL (8.5-10.4); CHLORIDE, SERUM 107 MMOL/L (96-112); CO2 (CARBON DIOXIDE) 28 MMOL/L (24-34); CREATININE 1.23 MG/DL (0.70-1.30); GFR AFRICAN AMERICAN 67 ML/MIN (>=60); GFR NON AFRICAN AMERICAN 57 ML/MIN (>=60); GLUCOSE, SERUM 107 MG/DL (60-99); POTASSIUM, SERUM 4.1 MMOL/L (3.5-5.3); SODIUM, SERUM 141 MMOL/L (135-148)
[2017-04-15 05:55] LABS: BASOPHILS 0.4 %; BASOPHILS ABSOLUTE 0.03 10/3/uL (0.0-0.16); EOSINOPHILS 5.6 %; EOSINOPHILS ABSOLUTE 0.41 10/3/uL (0.0-0.53); HEMATOCRIT 30.3 % (40.0-51.0); HEMOGLOBIN 9.5 g/dL (13.6-17.8); IMMATURE GRANULOCYTES 0.1 %; IMMATURE GRANULOCYTES ABSOLUTE 0.01 10/3/uL (0.0-0.11); LYMPHOCYTES 38.5 %; LYMPHOCYTES ABSOLUTE 2.82 10/3/uL (0.67-4.30); MEAN CORPUS HGB CONC 31.4 g/dL (32.0-36.0); MEAN CORPUSCULAR HEMOGLOB 26.7 pg (26.0-34.0); MEAN CORPUSCULAR VOLUME 85.1 fL (80-100); MEAN PLATELET VOLUME 9.1 fL (9.2-13.0); MONOCYTES 7.4 %; MONOCYTES ABSOLUTE 0.54 10/3/uL (0.21-1.20); NEUTROPHILS ABSOLUTE 3.52 10/3/uL (2.02-8.40); PLATELET COUNT 505 10/3/uL (150-400); RBC DISTRIBUTION WIDTH 21.9 % (12.0-16.0); RED CELL COUNT 3.56 10/6/uL (4.7-6.1); WHITE BLOOD CELLS 7.3 10/3/uL (4.5-10.5)
[2017-04-15 05:56] LABS: BUN (BLOOD UREA NITROGEN) 26 MG/DL (6-23); CALCIUM, SERUM 8.9 MG/DL (8.5-10.4); CHLORIDE, SERUM 105 MMOL/L (96-112); CO2 (CARBON DIOXIDE) 30 MMOL/L (24-34); CREATININE 1.28 MG/DL (0.70-1.30); GFR AFRICAN AMERICAN 63 ML/MIN (>=60); GFR NON AFRICAN AMERICAN 55 ML/MIN (>=60); GLUCOSE, SERUM 120 MG/DL (60-99); POTASSIUM, SERUM 3.9 MMOL/L (3.5-5.3); SODIUM, SERUM 139 MMOL/L (135-148)
[2017-04-15 06:00] LABS: MANUAL DIFF NO %
[2017-04-17 05:35] LABS: BASOPHILS 0.3 %; BASOPHILS ABSOLUTE 0.02 10/3/uL (0.0-0.16); EOSINOPHILS 8.2 %; EOSINOPHILS ABSOLUTE 0.57 10/3/uL (0.0-0.53); HEMATOCRIT 32.3 % (40.0-51.0); HEMOGLOBIN 10.2 g/dL (13.6-17.8); IMMATURE GRANULOCYTES 0.1 %; IMMATURE GRANULOCYTES ABSOLUTE 0.01 10/3/uL (0.0-0.11); LYMPHOCYTES 36.1 %; LYMPHOCYTES ABSOLUTE 2.51 10/3/uL (0.67-4.30); MEAN CORPUS HGB CONC 31.6 g/dL (32.0-36.0); MEAN CORPUSCULAR HEMOGLOB 27.2 pg (26.0-34.0); MEAN CORPUSCULAR VOLUME 86.1 fL (80-100); MEAN PLATELET VOLUME 8.9 fL (9.2-13.0); MONOCYTES 7.5 %; MONOCYTES ABSOLUTE 0.52 10/3/uL (0.21-1.20); NEUTROPHILS 47.8 %; NEUTROPHILS ABSOLUTE 3.32 10/3/uL (2.02-8.40); PLATELET COUNT 480 10/3/uL (150-400); RBC DISTRIBUTION WIDTH 21.3 % (12.0-16.0); RED CELL COUNT 3.75 10/6/uL (4.7-6.1)
[2017-04-17 05:44] LABS: MANUAL DIFF NO %
[2017-04-17 05:51] LABS: BUN (BLOOD UREA NITROGEN) 26 MG/DL (6-23); CALCIUM, SERUM 9.6 MG/DL (8.5-10.4); CHLORIDE, SERUM 103 MMOL/L (96-112); CO2 (CARBON DIOXIDE) 29 MMOL/L (24-34); CREATININE 1.23 MG/DL (0.70-1.30); GFR AFRICAN AMERICAN 67 ML/MIN (>=60); GFR NON AFRICAN AMERICAN 57 ML/MIN (>=60); GLUCOSE, SERUM 114 MG/DL (60-99); SODIUM, SERUM 137 MMOL/L (135-148)
[2017-04-17 05:52] LABS: POTASSIUM, SERUM 4.7 MMOL/L (3.5-5.3)
[2017-04-19 06:11] LABS: CALCIUM, SERUM 9.5 MG/DL (8.5-10.4); CHLORIDE, SERUM 102 MMOL/L (96-112); CO2 (CARBON DIOXIDE) 27 MMOL/L (24-34); CREATININE 1.37 MG/DL (0.70-1.30); GFR AFRICAN AMERICAN 58 ML/MIN (>=60); GFR NON AFRICAN AMERICAN 50 ML/MIN (>=60); GLUCOSE, SERUM 117 MG/DL (60-99); POTASSIUM, SERUM 5.1 MMOL/L (3.5-5.3); SODIUM, SERUM 136 MMOL/L (135-148)
[2017-04-19 06:14] LABS: BUN (BLOOD UREA NITROGEN) 31 MG/DL (6-23)
[2017-04-19] MEDS ORDERED: NEPHRO PO (15:15)
[2017-04-19] MEDS ORDERED: XARELTO20 MG PO (15:19)
[2017-04-19] MEDS ORDERED: BETAPACE80 PO (15:19)
[2017-04-19] MEDS ORDERED: SPIRIVA INH (15:22)
[2017-04-19] MEDS ORDERED: DAPTOMYCIN IV (15:24)
[2017-04-19] MEDS ORDERED: MAGOX4 PO (15:32)
[2017-04-19] MEDS ORDERED: KDUR20 PO (15:32)
[2017-04-19] MEDS ORDERED: **MEDICINE TO STOP (15:48)
== END 2017-04-19 18:45 | disposition home health service (06) | DRG 872 ==
LOC: 7NO 18:34
PROVIDERS: Hospitalist; Internal Medicine; Nurse Practitioner Family
PROC: B246ZZ4 Ultrasonography of Right and Left Heart, Transesophageal (ICD-10-PCS; principal; 2017-04-11)
PROC: 02HV33Z Insertion of Infusion Device into Superior Vena Cava, Percutaneous Approach (ICD-10-PCS; 2017-04-14)
PROC: 4A02X4A Measurement of Cardiac Electrical Activity, Guidance, External Approach (ICD-10-PCS; 2017-04-14)
DX: R78.81 Bacteremia (principal); N17.9 Acute kidney failure, unspecified; E44.0 Moderate protein-calorie malnutrition; A49.02 Methicillin resistant Staphylococcus aureus infection, unspecified site; I12.9 Hypertensive chronic kidney disease with stage 1 through stage 4 chronic kidney disease, or unspecified chronic kidney disease; F32.9 Major depressive disorder, single episode, unspecified; I48.2 Chronic atrial fibrillation; J44.9 Chronic obstructive pulmonary disease, unspecified; E11.9 Type 2 diabetes mellitus without complications; I25.2 Old myocardial infarction; I25.10 Atherosclerotic heart disease of native coronary artery without angina pectoris; N18.3 Chronic kidney disease, stage 3 (moderate); E78.5 Hyperlipidemia, unspecified; K21.9 Gastro-esophageal reflux disease without esophagitis; D63.8 Anemia in other chronic diseases classified elsewhere; M19.90 Unspecified osteoarthritis, unspecified site; F41.9 Anxiety disorder, unspecified; Z87.891 Personal history of nicotine dependence; Z79.4 Long term (current) use of insulin; Z86.19 Personal history of other infectious and parasitic diseases
CPT/HCPCS: 36415; 36569; 71010; 72157; 74177; 80048; 80053; 80069; 81001; 82550; 82553; 82962; 83735; 84100; 84145; 84484; 85025; 85652; 85730; 86140; 87040; 87077; 87150; 87184; 87186; 93005; 93312; 93320; 93325; 97161-GP; 97164-GP; A9270-GY; A9577; C1751; C8929; G0463; G8978-CH-GP; G8979-CH-GP; G8980-CH-GP; J0878; J3475; Q9957; Q9967